=== PATIENT | female | born 1975 | race American Indian/Alaskan Native ===

== ENCOUNTER 2016-08-05 05:13 | Inpatient (IN) | payer OTHER ==
[~2016-08-05 05:13] MED LIST: ATIVAN ONE
[2016-08-05] MEDS ORDERED: ATIVAN IV ONE ×3 (05:15→05:24)
[2016-08-05] MEDS ORDERED: KEPPRA 1,000 MG/NS 0.75% 100ML 1,000 MG/100 ML BAG IV ONE ×2 (05:15→05:25)
[2016-08-05] MEDS ORDERED: ATIVAN ONE ×2 (05:19→15:15)
[2016-08-05] MEDS ORDERED: ZEMURON IV ONE ×3 (05:21→15:14)
--- NOTE | 2016-08-05 05:31 | Emergency Department Report ---
ED CPR HPI - General Chief Complaint: Cardiac Arrest/CPR Stated Complaint: CARDIAC ARREST Time Seen by Provider: 08/05/16 05:21 Source: EMS (verbal report received from EMS. My EMS disclaimer) Limitations: Altered Mental Status - History of Present Illness Initial Comments: This is a 40-year-old female, she is previously unknown to me. She is brought to the hospital by EMS as an out of hospital respiratory/cardiac arrest. Past medical history is not certain, she does have a tracheostomy. As per verbal report from EMS, patient choked on something, place hands around neck, and indicated that she was having trouble breathing. EMS reports that while in the field, patient became very hard to bag through the tracheostomy, lost her pulses , and went into PEA arrest. Not receive epinephrine. EMS placed a left lower extremity intraosseous IV, and a report aggressively suctioning the patient, and obtaining return of spontaneous circulation. EMS does report that the patient was found down at home, for uncertain duration of time, and uncertain mechanism. Upon arrival to the ER, the patient was obtunded, having nonspecific myoclonic jerking movements. She had some spontaneous respirations. Pupils were midpoint and minimally reactive to light bilaterally. Rectal temperature was 98.2, no obvious signs of physical trauma. Patient had coarse rhonchorous breath sounds with [id number] ventilation. Cervical collar was placed immediately using C-spine precautions during her primary survey. MD Complaint: found unresponsive, stopped breathing, unknown Place: home Bystander CPR Performed: No AED Applied by Bystander/Package Delivery Driver: No Shock Advised: No Initial Findings in the Field: unresponsive, lethargic, agonal, PEA (lost pulses in the field) ROSC in the Field: Yes Treatments Prior to Arrival: chest compressions - Related Data Home Medications Medication Instructions Recorded Confirmed Last Taken Topiramate [Topamax] 100 mg PO BID 08/05/16 08/05/16 Unknown levETIRAcetam [Keppra TAB] mg PO BID 08/05/16 Unknown Previous Rx's Medication Instructions Recorded Last Taken Type Aspirin [Aspirin TAB] 325 mg PO QDAY tablet 08/07/16 Unknown Rx AtorvaSTATin [Lipitor] 40 mg PO QHS tablet 08/07/16 Unknown Rx Enoxaparin [Lovenox] 40 mg SUB-Q QDAY syringe 08/07/16 Unknown Rx Lipase/Protease/Amylase [Pancreaze 1 each FEEDTUBE PRN PRN 30 Days 08/07/16 Unknown Rx 10,500 Unit] Ondansetron [Zofran INJ] 4 mg IV Q8H PRN 30 Days 08/07/16 Unknown Rx Pantoprazole [Protonix INJ] 40 mg IV QDAY vial 08/07/16 Unknown Rx Sodium Chloride 0.9% 1000 ml [NaCl 100 ml IV DIRECT #2 bag 08/07/16 Unknown Rx 0.9 1000 ML] Topiramate [Topamax] 100 mg PO Q12HR tablet 08/07/16 Unknown Rx Allergies Allergy/AdvReac Type Severity Reaction Status Date / Time No Known Allergies Allergy Verified 08/05/16 05:30 ED Review of Systems ROS: Stated complaint: CARDIAC ARREST Other details as noted in HPI ED Past Medical Hx - Medications Home Medications: Home Medications Medication Instructions Recorded Confirmed Last Taken Type Topiramate [Topamax] 100 mg PO BID 08/05/16 08/05/16 Unknown History levETIRAcetam [Keppra TAB] mg PO BID 08/05/16 Unknown History Aspirin [Aspirin TAB] 325 mg PO QDAY tablet 08/07/16 Unknown Rx AtorvaSTATin [Lipitor] 40 mg PO QHS tablet 08/07/16 Unknown Rx Enoxaparin [Lovenox] 40 mg SUB-Q QDAY syringe 08/07/16 Unknown Rx Lipase/Protease/Amylase [Pancreaze 1 each FEEDTUBE PRN PRN 30 Days 08/07/16 Unknown Rx 10,500 Unit] Ondansetron [Zofran INJ] 4 mg IV Q8H PRN 30 Days 08/07/16 Unknown Rx Pantoprazole [Protonix INJ] 40 mg IV QDAY vial 08/07/16 Unknown Rx Sodium Chloride 0.9% 1000 ml [NaCl 100 ml IV DIRECT #2 bag 08/07/16 Unknown Rx 0.9 1000 ML] Topiramate [Topamax] 100 mg PO Q12HR tablet 08/07/16 Unknown Rx ED Physical Exam - General Limitations: Altered Mental Status General appearance: obtunded, other (patient has a GCS of 3) - Eye Eye exam: Present: other (pupils are midpoint, and have minimal reaction to light bilaterally.) - ENT ENT exam: Present: other (tracheostomy is noted, no redness, pus or streaking) - Neck Neck exam: Present: normal inspection - Respiratory Respiratory exam: Present: rhonchi - Cardiovascular Cardiovascular Exam: Present: normal rhythm, tachycardia - GI/Abdominal GI/Abdominal exam: Present: soft, normal bowel sounds. Absent: distended, tenderness, guarding, rebound, rigid, pulsatile mass - Extremities Exam Extremities exam: Present: normal inspection, normal capillary refill, other ( left lower extremity intraosseous IV is noted). Absent: calf tenderness - Back Exam Back exam: Present: normal inspection. Absent: tenderness - Neurological Exam Neurological exam: Present: altered - Psychiatric Psychiatric exam: Present: other (GCS of 3, nonverbal) - Skin Skin exam: Present: dry ED Course Vital Signs 08/05/16 08/05/16 08/05/16 05:22 06:00 06:14 Temperature 98.4 F Pulse Rate 112 H 112 H 110 H Respiratory 24 20 Rate Blood Pressure 107/67 102/69 Blood Pressure 102/55 [Left] O2 Sat by Pulse 100 100 100 Oximetry 08/05/16 08/05/16 08/05/16 06:30 07:52 09:01 Temperature Pulse Rate 106 H 82 84 Respiratory 18 17 Rate Blood Pressure 96/61 123/76 Blood Pressure 94/61 [Left] O2 Sat by Pulse 98 100 100 Oximetry 08/05/16 08/05/16 08/05/16 09:03 09:05 09:07 Temperature Pulse Rate 84 86 85 Respiratory 21 22 12 Rate Blood Pressure 123/76 123/76 123/76 Blood Pressure [Left] O2 Sat by Pulse 100 100 100 Oximetry 08/05/16 08/05/16 08/05/16 09:09 09:11 09:13 Temperature Pulse Rate 80 81 82 Respiratory 27 H 16 28 H Rate Blood Pressure 121/67 121/67 121/67 Blood Pressure [Left] O2 Sat by Pulse 100 100 100 Oximetry 08/05/16 08/05/16 08/05/16 09:15 09:17 09:19 Temperature Pulse Rate 82 85 86 Respiratory 25 H 24 25 H Rate Blood Pressure 127/77 127/77 127/77 Blood Pressure [Left] O2 Sat by Pulse 100 100 100 Oximetry 08/05/16 08/05/16 08/05/16 09:21 09:23 09:25 Temperature Pulse Rate 84 84 80 Respiratory 28 H 21 24 Rate Blood Pressure 127/77 127/77 127/77 Blood Pressure [Left] O2 Sat by Pulse 100 100 100 Oximetry 08/05/16 08/05/16 08/05/16 09:27 09:29 09:30 Temperature Pulse Rate 87 88 83 Respiratory 27 H 13 11 L Rate Blood Pressure 127/77 127/77 129/79 Blood Pressure [Left] O2 Sat by Pulse 100 100 100 Oximetry 08/05/16 08/05/16 08/05/16 09:31 09:33 09:35 Temperature Pulse Rate 92 H 83 88 Respiratory 10 L 11 L 15 Rate Blood Pressure 129/79 129/79 129/79 Blood Pressure [Left] O2 Sat by Pulse 100 100 100 Oximetry 08/05/16 08/05/16 08/05/16 09:37 09:39 09:41 Temperature Pulse Rate 82 90 89 Respiratory 12 10 L 12 Rate Blood Pressure 129/79 129/79 129/79 Blood Pressure [Left] O2 Sat by Pulse 100 100 100 Oximetry 08/05/16 08/05/16 08/05/16 09:43 09:45 09:47 Temperature Pulse Rate 90 92 H 93 H Respiratory 10 L 12 13 Rate Blood Pressure 129/79 129/79 132/78 Blood Pressure [Left] O2 Sat by Pulse 100 100 100 Oximetry 08/05/16 08/05/16 08/05/16 09:49 09:51 09:53 Temperature Pulse Rate 92 H 95 H 92 H Respiratory 11 L 11 L 11 L Rate Blood Pressure 132/78 132/78 132/78 Blood Pressure [Left] O2 Sat by Pulse 100 100 100 Oximetry 08/05/16 08/05/16 08/05/16 09:55 09:57 09:59 Temperature Pulse Rate 95 H 94 H 92 H Respiratory 11 L 10 L 10 L Rate Blood Pressure 132/78 132/78 132/78 Blood Pressure [Left] O2 Sat by Pulse 100 100 100 Oximetry 08/05/16 08/05/16 08/05/16 10:00 10:01 10:03 Temperature Pulse Rate 98 H 88 96 H Respiratory 12 13 13 Rate Blood Pressure 130/81 130/81 130/81 Blood Pressure [Left] O2 Sat by Pulse 100 100 100 Oximetry 08/05/16 08/05/16 08/05/16 10:05 10:07 10:09 Temperature Pulse Rate 92 H 95 H 95 H Respiratory 12 13 9 L Rate Blood Pressure 130/81 130/81 130/81 Blood Pressure [Left] O2 Sat by Pulse 100 100 100 Oximetry 08/05/16 08/05/16 08/05/16 10:11 10:13 10:15 Temperature Pulse Rate 98 H 92 H 95 H Respiratory 9 L 13 9 L Rate Blood Pressure 130/81 130/81 130/81 Blood Pressure [Left] O2 Sat by Pulse 100 100 100 Oximetry 08/05/16 08/05/16 08/05/16 10:17 10:19 10:21 Temperature Pulse Rate 93 H 97 H 97 H Respiratory 9 L 9 L 11 L Rate Blood Pressure 128/77 128/77 128/77 Blood Pressure [Left] O2 Sat by Pulse 100 100 100 Oximetry 08/05/16 08/05/16 08/05/16 10:23 10:25 10:27 Temperature Pulse Rate 108 H 95 H 96 H Respiratory 11 L 11 L 12 Rate Blood Pressure 128/77 128/77 128/77 Blood Pressure [Left] O2 Sat by Pulse 100 100 100 Oximetry 08/05/16 08/05/16 08/05/16 10:29 10:30 10:31 Temperature Pulse Rate 98 H 99 H 96 H Respiratory 28 H 10 L 10 L Rate Blood Pressure 128/77 132/76 132/76 Blood Pressure [Left] O2 Sat by Pulse 97 97 Oximetry 08/05/16 08/05/16 10:33 10:41 Temperature Pulse Rate 95 H 96 H Respiratory 11 L 11 L Rate Blood Pressure 132/76 132/76 Blood Pressure [Left] O2 Sat by Pulse 86 85 Oximetry - Reevaluation(s) Reevaluation #1: 08/05/16 05:37 differential diagnosis: Intracranial injury, cervical spine injury, hypoxemic arrest, hypercarbic arrest, coronary artery disease, aspiration Assessment and plan: 40-year-old female without hospital cardiac arrest, clinically sounds currently respiratory in nature. She is altered upon arrival , with nonspecific myoclonic jerking. CT scan of the head and cervical spine are pending. Laboratory studies pending. EKG, urinalysis pending. Reevaluation #2: 08/05/16 06:36 care is transferred to Dr Darnell, who will follow up on ct of head and c spine. assuming no pathology that would would require transfer, plan is to admit patient to this hospital for respiratory and cardiac arrest this hospital does not have a hypothermia protocol - EJ/Peripheral Line Leg L Time Out Performed: Yes Indications: multiple IV sites needed Size: 18 Dressing Placed: Tegaderm Patient Tolerated Procedure: well Other Time Out Performed: Yes Indications: multiple IV sites needed Skin Cleansed in Sterile Fashion: Yes Size: 20 Dressing Placed: Tegaderm Patient Tolerated Procedure: well Additional Comments: left chest wall ED Medical Decision Making - Lab Data Result diagrams: 08/06/16 04:20 08/07/16 05:15 Vital Signs 08/05/16 05:22 Temperature 98.4 F Pulse Rate 112 H Respiratory 24 Rate Blood Pressure 107/67 O2 Sat by Pulse 100 Oximetry - EKG Data When compared to previous EKG there are: previous EKG unavailable 08/05/16 05:47 Sinus tachycardia, 112 bpm, atrial enlargement, not morphologically consistent with STEMI. Normal axis. Prolonged QTC at 483 ms. - Radiology Data Radiology results: image reviewed interpreted by me: X-ray of the chest demonstrates no acute disease. Tracheostomy is noted in place. No obvious infiltrates. Critical Care Time: Yes Critical care time in (mins) excluding proc time.: 45 Critical care attestation.: If time is entered above; I have spent that time in minutes in the direct care of this critically ill patient, excluding procedure time. Critical Care Time: Critical care time includes multiple bedside evaluations, interpretation of laboratory studies, radiology studies, time spent managing a critically ill patient with respiratory failure. ED Disposition Clinical Impression: Acute hypoxemic respiratory failure, Discharge planning issues Disposition: OP ADMITTED IP TO THIS HOSP Is pt being admited?: Yes Condition: Critical
[2016-08-05 05:39] LABS: Mean Corpuscular HGB Conc 31 % (30-34); Mean Corpuscular Hemoglobin 29 pg (28-32); Mean Corpuscular Volume 94 fl (79-97); Platelet Count 232 K/mm3 (140-440); Red Blood Count 4.19 M/mm3 (3.65-5.03); Red Cell Distribution Width 14.6 % (13.2-15.2)
[2016-08-05 05:53] LABS: Hematocrit 39.2 % (30.3-42.9)
[2016-08-05 06:03] LABS: Albumin 3.9 g/dL (3.9-5); Albumin/Globulin Ratio 1.2 %; BUN/Creatinine Ratio 11.42; Bilirubin,Total 0.5 mg/dL (0.1-1.2); Calcium 8.8 mg/dL (8.4-10.2); Chloride 102.1 mmol/L (98-107); Potassium 4.4 mmol/L (3.6-5.0); Total Protein 7.1 g/dL (6.3-8.2)
[2016-08-05 06:08] LABS: INR 1.22 (0.87-1.13)
[2016-08-05 06:12] LABS: ISTAT Base Excess -12; ISTAT HCO3 18.1; ISTAT PCO2 59.6 (35-45); ISTAT PO2 139 (80-105); ISTAT SO2 98; ISTAT TCO2 20
[2016-08-05] MEDS ORDERED: NACL 0.9% 1000 ML 1,000 ML IV ONE ×2 (06:15)
--- NOTE | 2016-08-05 06:19 | Admit Criteria Form ---
Admission Criteria Documentation: CARDIOLOGY GRG Clinical Indications for Admission to Inpatient Care ( Place 'X' for any and all applicable criteria): Hospital admission is needed for appropriate care of the patient because of ANY ONE of the following (1): [ ] I. Hemodynamic instability as indicated by ALL of the following (1)(2)(3) (4)(5) [ ]a) Vital signs or other findings not as expected for chronic patient condition or baseline [ ]b) Instability indicated by ANY ONE of the following: [ ]i) Hypotension [ ]ii) Symptomatic Tachycardia unresponsive to treatment ( e.g., analgesia, fluids, sedation as indicated) [ ]iii) Inadequate perfusion indicated by ANY ONE of the following: [ ] 1) Lactic acidosis (> 2 mmol/L) [ ] 2) New abnormal capillary refill (> 3 seconds) [ ] 3) Reduced urine output [ ] 4) New altered mental status [ ]iv) Orthostatic vital sign changes unresponsive to treatment (e.g., fluids) [ ]v) IV inotropic or vasopressor medication required to maintain adequate blood pressure or perfusion [ ] II. Severe heart failure as indicated by ANY ONE of the following(17)(18) [ ]a) Respiratory distress [ ]b) Hypotension [ ]c) Anasarca (refractory to outpatient therapy) [ ]d) Cardiac arrhythmias of immediate concern [ ]e) Myocardial ischemia [X ] III. Cardiac arrhythmias or findings of immediate concern indicated by ANY ONE of the following (19)(20): [X ] a) Heart rhythms that are inherently dangerous or unstable indicated by ANY ONE of the following (21)(22)(23): [X ] i) Resuscitated ventricular fibrillation or cardiac arrest [ ] ii) Ventricular escape rhythm [ ] iii) Sustained ventricular tachycardia (30 seconds or more of ventricular rhythm at greater than 100 beats per minute) [ ] iv) Nonsustained ventricular tachycardia and ANY ONE of the following: [ ] 1) Suspected cardiac ischemia as cause or consequence of ventricular tachycardia [ ] 2) In setting of acute myocarditis [ ] b) Unstable cardiac conduction defects indicated by ANY ONE of the following(23)(24)(25) [ ] i) Type II second-degree atrioventricular block [ ]ii) Third-degree atrioventricular block [ ]iii) New-onset left bundle branch block with suspected myocardial ischemia [ ]c) Any heart rhythm and ANY ONE of the following (21)(22)(26)(27) (28) [ ] i) Continuous long-term ECG monitoring needed (e.g., initiation of drug requiring monitoring for more than 24 hours) [ ] ii) Patient has automatic implanted cardioverter defibrillator that is repeatedly firing, malfunctioning, or in need of immediate adjustment of settings beyond the scope of ambulatory or observation care [ ]d) Heart rhythms of concern due to ANY ONE of the following: [ ] i) Hypotension [ ] ii) Respiratory distress [ ] iii) Association with other significant symptoms (e.g., bradycardia with syncope or ongoing dizziness, supraventricular tachycardia with chest pain (14)(15)(17) [ ] IV. Monitoring for cardiac contusion beyond the scope of observation care needed [A](30)(31)(32) [ ] V. Surgical or device complication (e.g., valve replacement complication , pacemaker dysfunction) (35)(41)(44)(45)(46) [ ] . Inpatient palliative care needed. [B](49) Also use Inpatient Palliative Care Criteria [ ] VII. Nonbacterial thrombotic (marantic) endocarditis (36)(43)(47)(48) [ ] VIII. Cardiology condition, symptom, or finding for which emergency and observation care has failed or are not considered appropriate. [ ] IX. Acute valvular disease requiring inpatient as indicated by ANY ONE of the following (41) [ ]a) Acute valvular regurgitation (42) [ ]b) Noninfectious valvulitis (43) [ ]c) Obstructive valve thrombosis [ ]d) Paravalvular leak [ ]e) Other significant valvular disorder remaining after emergency or observation level of care (as appropriate) [ ]X. Pericardial disease requiring inpatient treatment as indicated by ANY ONE of the following (33)(34)(35)(36)(37) [ ]a) Suspected tamponade (38)(39)(40) [ ]b) Hemopericardium [ ]c) Other significant pericardial disorder remaining after emergency or observation level of care (as appropriate) [ ] XI. Cardiac ischemia beyond scope of emergency and observation care. [ ] XII. Hypertension requiring inpatient treatment as indicated by ANY ONE of the following (6)(7)(8) [ ]a) SBP greater than 220 mm Hg or DBP greater than 120 mmHg despite treatment [ ]b) SBP greater than 140 mm Hg or DBP greater than 100 mm Hg with evidence of acute end organ damage as indicated by ANY ONE of the following [ ] i) Altered mental status [ ] ii) Acute renal failure as indicated by new onset of ANY ONE of the following (9)(10)(11)(12)(13) [ ]1) 3-fold rise in serum creatinine from baseline [ ]2) Serum creatinine greater than 4 mg/dL ( 354 micromoles/L) with acute rise greater than 0.5 mg/dL (44.2 micromoles/L) [ ]3) Reduction of more than 75% in estimated glomerular filtration rate from baseline [ ]4) Estimated glomerular filtration rate less than 35 mL/min/1.73m2 (0.59 mL/sec/1.73m2) in child up to 18 years of age [ ]5) Cessation of urine output indicated by ALL of the following [ ]A. Adequate volume status [ ]B. Inadequate urine output as indicated by ANY ONE of the following [ ]a. Urine output less than 0.3 mL/kg/hr for 24 hours [ ]b. Anuria (urine output less than 0.1 mL/kg/hr) for 12 hours [ ] iii) Aortic dissection [ ] iv) Myocardial Ischemia [ ] v) Left ventricular heart failure [ ]vi) Retinal Hemorrhage [ ]vii) Other significant finding [ ]c) Hypertension in child requiring inpatient treatment as indicated by ALL of the following(14)(15)(16) [ ] i) Outpatient treatment not effective, not available, or not appropriate [ ]ii) SBP or DBP greater than 95th percentile for age [ ]iii) Evidence of acute end organ damage as indicated by ANY ONE of the following [ ]1) Altered mental status [ ]2) Acute renal failure as indicated by new onset of ANY ONE of the following(9)(10)(11)(12)(13) [ ]A. 3-fold rise in serum creatinine from baseline [ ]B. Serum creatinine greater than 4 mg/dL (354 micromoles/L) with acute rise greater than 0.5 mg/dL (44.2 micromoles/L) [ ]C. Reduction of more than 75% in estimated glomerular filtration rate from baseline [ ]D. Estimated glomerular filtration rate less than 35 mL/min/1.73m2 (0.59 mL/sec/1.73m2) in child up to 18 years of age [ ]E. Cessation of urine output indicated by ALL of the following [ ]a. Adequate volume status [ ]b. Inadequate urine output as indicated by ANY ONE of the following [ ]i) Urine output less than 0.3 mL/kg/hr for 24 hours [ ]ii) Anuria ( urine output less than 0.1 mL/kg/hr) for 12 hours [ ]3) Severe headache [ ]4) Visual disturbance [ ]5) Retinal hemorrhage [ ]6) Other significant finding [ ]XIII. Complications of transplanted heart indicated by ANY ONE of the following(61): [ ]a) Acute graft rejection requiring inpatient management (eg, intravenous immunosuppression)(62)(63) [ ]b) Acute graft heart failure indicated by ANY ONE of the following(64): [ ]i) Hemodynamic instability [ ]ii) Cardiac arrhythmias of immediate concern [ ]iii) Pulmonary edema that is very severe (eg, mechanical ventilation needed, imminent or likely, need for 100% oxygen to keep oxygen saturation above 90%) [ ]iv) Pulmonary edema that is persistent as indicated by ALL of the following: [ ]1) New need for oxygen therapy to keep oxygen saturation above 90% (or increased FiO2 need from baseline) [ ]2) Has not improved sufficiently with emergency department or observation care IV diuretics or other heart failure treatments[E] [ ]v) Altered mental status that is severe or persistent [ ]vi) Increased creatinine (new on laboratory test) with reduction of more than 50% in estimated glomerular filtration rate from baseline [ ]vii) Progressively (ongoing) rising creatinine (known from past laboratory test) with reduction of more than 25% in estimated glomerular filtration rate from baseline [ ]viii) Acute renal failure [ ]ix) Acute peripheral ischemia (eg, examination shows pulseless, cool, mottled, or cyanotic extremity) [ ]x) Pulmonary artery catheter monitoring needed [ ]xi) Other sign or symptom of heart failure requiring inpatient treatment (ie, too severe or not responsive to outpatient and observation care treatment) [ ]c) Infection requiring inpatient management (eg, Hemodynamic instability, need for intravenous antimicrobial treatment)(66)(67)(68)(69)(70) [ ]d) Cardiac allograft vasculopathy requiring inpatient management ( eg evidence of cardiac ischemia)(71) [ ]e) Other complication of transplanted heart (eg, stroke, severe pulmonary hypertension, severe valvular dysfunction) requiring inpatient management(72) The original [facility] [email or web address] content created by [facility] has been revised. The portions of the content which have been revised are identified through the use of italic text or in bold, and [facility] has neither reviewed nor approved the modified material. All other unmodified content is copyright [facility]. Please see references footnoted in the original [facility] [email or web address] edition 2016 X Admission Criteria Met: Yes
[2016-08-05 07:03] LABS: Basophils % (Manual) 0 % (0.0-1.8); Blastocytes % (Manual) 0 %; Eosinophils % (Manual) 0 % (0.0-4.3)
[2016-08-05 07:04] LABS: Anisocytosis 1+; Diff Status Complete; Hypochromasia Few
--- NOTE | 2016-08-05 07:15 | XRay Report ---
Single view chest: History: Difficulty breathing. Findings: Borderline cardiomegaly. Trachea is midline. Tip of tracheostomy tube in normal position. No consolidation, pneumothorax or pleural effusion. Impression: No acute cardiopulmonary findings.
[2016-08-05 07:23] LABS: Urine Drugs of Abuse Note Disclamer
--- NOTE | 2016-08-05 07:55 | Cat Scan Report ---
CT scan of head without contrast: History: Out of hospital arrest found down. Findings: Ventricles are normal in size and midline in location. No evidence of acute ischemia, hemorrhage or mass. No extra axial fluid collection. Normal brainstem and cerebellum. Visualized sinuses and mastoid air cells normal. No fracture of the calvarium. The Impression: Essentially negative CT scan of head.
--- NOTE | 2016-08-05 07:57 | Cat Scan Report ---
CT scan of cervical spine: History: Out of hospital arrest, found down. Findings: Pulmonary process and lateral mass appears intact. The posterior arch of atlas and the occipital condyles appears normal. Normal height of vertebral bodies. Decrease in height of C4-C5, C5-C6, C6-C7 and C7-T1. Sclerotic articular surfaces with evidence of cervical spondylosis. No fracture. Normal prevertebral soft tissue. Impression: Cervical spondylosis. No evidence of acute fracture.
[2016-08-05 08:02] LABS: Bilirubin,Urine NEG (Negative); Blood,Urine SM (Negative); Ketones,Urine NEG (Negative); Leukocyte Esterase,Urine NEG (Negative); Mucus,Urine FEW /HPF; Nitrite,Urine NEG (Negative); Urobilinogen,Urine < 2.0 mg/dL (<2.0)
[2016-08-05 08:04] LABS: Protein,Urine >500 mg/dL (Negative)
--- NOTE | 2016-08-05 08:15 | Emergency Department Report ---
ED General Adult HPI - General Chief complaint: Dyspnea/Respdistress Stated complaint: CARDIAC ARREST Time Seen by Provider: 08/05/16 05:21 Source: EMS (verbal report received from EMS. My EMS disclaimer) Mode of arrival: Stretcher Limitations: Altered Mental Status - History of Present Illness Severity scale (0 -10): 0 - Related Data Allergies Allergy/AdvReac Type Severity Reaction Status Date / Time No Known Allergies Allergy Verified 08/05/16 05:30 ED Review of Systems ROS: Stated complaint: CARDIAC ARREST Other details as noted in HPI ED Past Medical Hx - Past Medical History Previous Medical History?: Yes Hx Diabetes: Yes - Surgical History Past Surgical History?: Yes Additional Surgical History: TRACHEOSTOMY - Social History Smoking Status: Unknown if ever smoked ED Physical Exam - General Limitations: Altered Mental Status General appearance: obtunded, other (patient has a GCS of 3) ED Course Vital Signs 08/05/16 08/05/16 08/05/16 05:22 06:00 06:14 Temperature 98.4 F Pulse Rate 112 H 112 H 110 H Respiratory 24 20 Rate Blood Pressure 107/67 102/69 Blood Pressure 102/55 [Left] O2 Sat by Pulse 100 100 100 Oximetry 08/05/16 08/05/16 06:30 07:52 Temperature Pulse Rate 106 H 82 Respiratory 18 Rate Blood Pressure 96/61 Blood Pressure 94/61 [Left] O2 Sat by Pulse 98 100 Oximetry ED Medical Decision Making - Lab Data Result diagrams: 08/05/16 Unknown 08/05/16 Unknown - Medical Decision Making Patient signed out to me by Dr. Monk , he spoke with the admitting doctor already and we are pending the results of CT head and neck which are normal, so I called back the hospitlaist and let them know about the results and they will admit. Critical Care Time: Yes Critical care time in (mins) excluding proc time.: 35 Critical care attestation.: If time is entered above; I have spent that time in minutes in the direct care of this critically ill patient, excluding procedure time. ED Disposition Condition: Stable Referrals: PRIMARY CARE, [Primary Care Provider] - 3-5 Days
[2016-08-05] MEDS ORDERED: ZOFRAN IV PRN (09:34)
[2016-08-05] MEDS ORDERED: DULCOLAX PR PRN ×2 (09:34→09:46)
[2016-08-05] MEDS ORDERED: MILK OF MAGNESIA PO PRN ×2 (09:34→09:46)
[2016-08-05] MEDS ORDERED: TYLENOL PO PRN (09:34)
[2016-08-05] MEDS ORDERED: ALUM-MAG HYDROX-SIMETH 200-200-20MG/5ML PO PRN (09:46)
[2016-08-05] MEDS ORDERED: VASELINE LIP THERAPY TP PRN (10:00)
[2016-08-05] MEDS ORDERED: ARTIFICIAL TEARS OPHTH OINT OU PRN (10:00)
[2016-08-05] MEDS: VERSED/NS 100MG/100ML 100 MG/100 ML BAG IV SCH ×2 (10:20→19:58)
--- NOTE | 2016-08-05 10:49 | History and Physical Report ---
History of Present Illness Chief complaint: altered mental status History of present illness: Patient is nonverbal, so therefore history was obtained from EMS documentation, ER documentation and nursing staff This is a 40-year-old woman with past medical history of seizure disorder on Keppra and Topamax, who is status post trach and lives at home who was found by family having trouble breathing, apparently was mentioned to the ER staff that family members saw her struggling to breathe, after which she collapsed. EMS was called upon arriving they found her unresponsive in the bathroom she was cold to touch and pale she had agonal respiration and she was pulseless on pupils were nonreactive, and at the time had to touch assessment did not show any obvious trauma, she received CPR which included chest compressions she was found to have PE at a rate of 50, hypertensive bag revealed resistance, after which she was aggressively suctioned. After chest compressions and bagging patient had a spontaneous return of circulation, IO was placed and she received IV fluids. Upon arriving in the ER her mental status did not improve, she continued to have myoclonic jerking, she also lacks majority of brainstem function does not have a corneal reflex. Past History Past Medical History: seizures, other (sp tracheostomy) Social history: lives with family Family history: no significant family history Medications and Allergies Allergies Allergy/AdvReac Type Severity Reaction Status Date / Time No Known Allergies Allergy Verified 08/05/16 05:30 Home Medications Medication Instructions Recorded Confirmed Last Taken Type Topiramate [Topamax] 100 mg PO BID 08/05/16 08/05/16 Unknown History levETIRAcetam [Keppra TAB] mg PO BID 08/05/16 Unknown History Active Meds: Active Medications Acetaminophen (Tylenol) 650 mg PO Q4H PRN PRN Reason: Pain MILD(1-3)/Fever >100.5/CHRISTINE Al Hydrox/Mg Hydrox/Simethicone (Alum-Mag Hydrox-Simeth [phone]/5ml) 30 ml PO Q4H PRN PRN Reason: Indigestion Bisacodyl (Dulcolax) 10 mg [place] QDAY PRN PRN Reason: Constipation unrelieved by MOM Bisacodyl (Dulcolax) 10 mg KS QDAY PRN PRN Reason: constipation unrelieved by MOM Enoxaparin Sodium (Lovenox) 40 mg SUB-Q QDAY LEDY Hydrophilic Ointment (Vaseline Lip Therapy) 1 applic TP Q2HR PRN PRN Reason: Dry Lips Levetiracetam 1,000 mg/ (Dextrose) 110 mls @ 400 mls/hr IV Q12HR LEDY Midazolam HCl (Versed/Ns 100mg/100ml) 100 mls @ 2 mls/hr IV TITR LEDY; 2 MG/HR PRN Reason: Protocol Magnesium Hydroxide (Milk Of Magnesia) 30 ml PO Q4H PRN PRN Reason: Constipation Magnesium Hydroxide (Milk Of Magnesia) 30 ml PO Q4H PRN PRN Reason: Constipation Multi-Ingred Cream/Lotion/Oil/Oint (Artificial Tears Ophth Oint) 1 applic OU Q4HR PRN PRN Reason: Dry Eye(s) Ondansetron HCl (Zofran) 4 mg IV Q8H PRN PRN Reason: N/V unrelieved by Reglan Review of Systems ROS unobtainable: due to mental status Exam - Physical Exam Narrative exam: General: obtunded, having intermittent full body myoclonal jerks HEENT: MMM, EOMI cardiac: S1-S2 heard lungs: clear to auscultation, abdomen: soft, nontender, nondistended bowel sounds positive extremities: no edema clubbing or cyanosis Skin: no rash or lesion Neuro: no corneal reflex, non responsive to verbal, tactile or painful stimuli, absense of brain stem reflexes, toes are upgoing, (not sedated at time of my exam, Pupils were midpoint and minimally reactive to light bilaterally), - Constitutional Vitals: Temp Pulse Resp BP Pulse Ox 98.4 F 82 18 96/61 100 08/05/16 05:22 08/05/16 07:52 08/05/16 06:30 08/05/16 07:52 08/05/16 07:52 Results - Labs CBC & Chem 7: 08/06/16 04:20 08/06/16 04:20 Labs: Laboratory Last Values WBC 14.0 K/mm3 (4.5-11.0) H 08/05/16 Unknown RBC 4.19 M/mm3 (3.65-5.03) 08/05/16 Unknown Hgb 12.0 gm/dl (10.1-14.3) 08/05/16 Unknown Hct 39.2 % (30.3-42.9) 08/05/16 Unknown MCV 94 fl (79-97) 08/05/16 Unknown MCH 29 pg (28-32) 08/05/16 Unknown MCHC 31 % (30-34) 08/05/16 Unknown RDW 14.6 % (13.2-15.2) 08/05/16 Unknown Plt Count 232 K/mm3 (140-440) 08/05/16 Unknown Add Manual Diff Complete 08/05/16 Unknown Total Counted 100 08/05/16 Unknown Seg Neuts % (Manual) 57.0 % (40.0-70.0) 08/05/16 Unknown Band Neutrophils % 6.0 % 08/05/16 Unknown Lymphocytes % (Manual) 31.0 % (13.4-35.0) 08/05/16 Unknown Reactive Lymphs % (Man) 0 % 08/05/16 Unknown Monocytes % (Manual) 5.0 % (0.0-7.3) 08/05/16 Unknown Eosinophils % (Manual) 0 % (0.0-4.3) 08/05/16 Unknown Basophils % (Manual) 0 % (0.0-1.8) 08/05/16 Unknown Metamyelocytes % 1.0 % 08/05/16 Unknown Myelocytes % 0 % 08/05/16 Unknown Promyelocytes % 0 % 08/05/16 Unknown Blast Cells % 0 % 08/05/16 Unknown Nucleated RBC % Not Reportable 08/05/16 Unknown Seg Neutrophils # Man 8.0 K/mm3 (1.8-7.7) H 08/05/16 Unknown Band Neutrophils # 0.8 K/mm3 08/05/16 Unknown Lymphocytes # (Manual) 4.3 K/mm3 (1.2-5.4) 08/05/16 Unknown Abs React Lymphs (Man) 0.0 K/mm3 08/05/16 Unknown Monocytes # (Manual) 0.7 K/mm3 (0.0-0.8) 08/05/16 Unknown Eosinophils # (Manual) 0.0 K/mm3 (0.0-0.4) 08/05/16 Unknown Basophils # (Manual) 0.0 K/mm3 (0.0-0.1) 08/05/16 Unknown Metamyelocytes # 0.1 K/mm3 08/05/16 Unknown Myelocytes # 0.0 K/mm3 08/05/16 Unknown Promyelocytes # 0.0 K/mm3 08/05/16 Unknown Blast Cells # 0.0 K/mm3 08/05/16 Unknown WBC Morphology Not Reportable 08/05/16 Unknown Hypersegmented Neuts Not Reportable 08/05/16 Unknown Hyposegmented Neuts Not Reportable 08/05/16 Unknown Hypogranular Neuts Not Reportable 08/05/16 Unknown Smudge Cells Not Reportable 08/05/16 Unknown Toxic Granulation Not Reportable 08/05/16 Unknown Toxic Vacuolation Not Reportable 08/05/16 Unknown Dohle Bodies Not Reportable 08/05/16 Unknown Pelger-Huet Anomaly Not Reportable 08/05/16 Unknown Parvin Rods Not Reportable 08/05/16 Unknown Platelet Estimate Appears normal 08/05/16 Unknown Clumped Platelets Not Reportable 08/05/16 Unknown Plt Clumps, EDTA Not Reportable 08/05/16 Unknown Large Platelets Not Reportable 08/05/16 Unknown Giant Platelets Not Reportable 08/05/16 Unknown Platelet Satelliting Not Reportable 08/05/16 Unknown Plt Morphology Comment Not Reportable 08/05/16 Unknown RBC Morphology Not Reportable 08/05/16 Unknown Dimorphic RBCs Not Reportable 08/05/16 Unknown Polychromasia Not Reportable 08/05/16 Unknown Hypochromasia Few 08/05/16 Unknown Poikilocytosis Not Reportable 08/05/16 Unknown Anisocytosis 1+ 08/05/16 Unknown Microcytosis Not Reportable 08/05/16 Unknown Macrocytosis Not Reportable 08/05/16 Unknown Spherocytes Not Reportable 08/05/16 Unknown Pappenheimer Bodies Not Reportable 08/05/16 Unknown Sickle Cells Not Reportable 08/05/16 Unknown Target Cells Not Reportable 08/05/16 Unknown Tear Drop Cells Not Reportable 08/05/16 Unknown Ovalocytes Not Reportable 08/05/16 Unknown Helmet Cells Not Reportable 08/05/16 Unknown Hdz-[place] Bodies Not Reportable 08/05/16 Unknown [place] Rings Not Reportable 08/05/16 Unknown Cheryl Cells Not Reportable 08/05/16 Unknown Bite Cells Not Reportable 08/05/16 Unknown Crenated Cell Not Reportable 08/05/16 Unknown Elliptocytes Not Reportable 08/05/16 Unknown Acanthocytes (Spur) Not Reportable 08/05/16 Unknown Rouleaux Not Reportable 08/05/16 Unknown Hemoglobin C Crystals Not Reportable 08/05/16 Unknown Schistocytes Not Reportable 08/05/16 Unknown Malaria parasites Not Reportable 08/05/16 Unknown Len Bodies Not Reportable 08/05/16 Unknown Hem Pathologist Commnt No 08/05/16 Unknown PT 15.3 Sec. (12.2-14.9) H 08/05/16 Unknown INR 1.22 (0.87-1.13) H 08/05/16 Unknown POC ABG pH 7.090 (7.35-7.45) L 08/05/16 06:03 POC ABG pCO2 59.6 (35-45) H 08/05/16 06:03 POC ABG pO2 139 (80-105) H 08/05/16 06:03 POC ABG HCO3 18.1 08/05/16 06:03 POC ABG Total CO2 20 08/05/16 06:03 POC ABG O2 Sat 98 08/05/16 06:03 POC ABG Base Excess -12 08/05/16 06:03 FiO2 50 % 08/05/16 06:03 Sodium 138 mmol/L (137-145) 08/05/16 Unknown Potassium 4.4 mmol/L (3.6-5.0) 08/05/16 Unknown Chloride 102.1 mmol/L (98-107) 08/05/16 Unknown Carbon Dioxide 16 mmol/L (22-30) L 08/05/16 Unknown Anion Gap 24 mmol/L 08/05/16 Unknown BUN 16 mg/dL (7-17) 08/05/16 Unknown Creatinine 1.4 mg/dL (0.7-1.2) H 08/05/16 Unknown Estimated GFR 41 ml/min 08/05/16 Unknown BUN/Creatinine Ratio 11.42 % 08/05/16 Unknown Glucose 231 mg/dL (65-100) H 08/05/16 Unknown Lactic Acid 4.6 mmol/L (0.7-2.0) H* 08/05/16 05:38 Calcium 8.8 mg/dL (8.4-10.2) 08/05/16 Unknown Total Bilirubin 0.5 mg/dL (0.1-1.2) 08/05/16 Unknown AST 176 units/L (5-40) H 08/05/16 Unknown ALT 112 units/L (7-56) H 08/05/16 Unknown Alkaline Phosphatase 83 units/L (35-129) 08/05/16 Unknown Troponin T < 0.010 ng/mL (0.00-0.029) 08/05/16 Unknown Total Protein 7.1 g/dL (6.3-8.2) 08/05/16 Unknown Albumin 3.9 g/dL (3.9-5) 08/05/16 Unknown Albumin/Globulin Ratio 1.2 % 08/05/16 Unknown Urine Color Yellow (Yellow) 08/05/16 07:00 Urine Turbidity Cloudy (Clear) 08/05/16 07:00 Urine pH 6.0 (5.0-7.0) 08/05/16 07:00 Ur Specific George 1.013 (1.003-1.030) 08/05/16 07:00 Urine Protein >500 mg/dL (Negative) 08/05/16 07:00 Urine Glucose (UA) 150 mg/dL (Negative) 08/05/16 07:00 Urine Ketones Neg mg/dL (Negative) 08/05/16 07:00 Urine Blood Sm (Negative) 08/05/16 07:00 Urine Nitrite Neg (Negative) 08/05/16 07:00 Urine Bilirubin Neg (Negative) 08/05/16 07:00 Urine Urobilinogen < 2.0 mg/dL (<2.0) 08/05/16 07:00 Ur Leukocyte Esterase Neg (Negative) 08/05/16 07:00 Urine WBC (Auto) 15.0 /HPF (0.0-6.0) H 08/05/16 07:00 Urine RBC (Auto) 11.0 /HPF (0.0-6.0) 08/05/16 07:00 U Epithel Cells (Auto) 4.0 /HPF (0-13.0) 08/05/16 07:00 Amorphous Crystals Few 08/05/16 07:00 Urine Mucus Few /HPF 08/05/16 07:00 Urine HCG, Qual Negative (Negative) 08/05/16 07:00 Urine Opiates Screen Presumptive negative 08/05/16 07:00 Urine Methadone Screen Presumptive negative 08/05/16 07:00 Ur Barbiturates Screen Presumptive negative 08/05/16 07:00 Ur Phencyclidine Scrn Presumptive negative 08/05/16 07:00 Ur Amphetamines Screen Presumptive negative 08/05/16 07:00 U Benzodiazepines Scrn Presumptive negative 08/05/16 07:00 Urine Cocaine Screen Presumptive negative 08/05/16 07:00 U Marijuana (THC) Screen Presumptive negative 08/05/16 07:00 Assessment and Plan Assessment and plan: This is a 40-year-old woman who is status post trach and lives at home who was found by family having trouble breathing, apparently was mentioned to the ER staff that family members saw her choking on something, after which she collapsed. EMS was called upon arriving they found her unresponsive in the bathroom she was cold to touch and pale she had agonal respiration and she was pulseless on pupils were nonreactive, and at the time had to touch assessment did not show any obvious trauma, she received CPR which included chest compressions she was found to have PE at a rate of 50, hypertensive bag revealed resistance, after which she was aggressively suctioned. After chest compressions and bagging patient had a spontaneous return of circulation, IO was placed and she received IV fluids. Upon arriving in the ER her mental status did not improve, she continued to have myoclonic jerking, she also lacks majority of brainstem function does not have a corneal reflex 1. Suspected anoxic brain injury CT head unremarkable, C-spine imaging does not reveal any trauma. Will obtain EEG and MRI brain, neurology consulted, also need to speak to the family about the goals of care. 2. Status epilepticus Currently having myoclonic jerks, concern would anoxic related seizures at that time. We started her on Keppra, patient being put on Versed drip, will obtain EEG and neurology consult 3. Mixed acidosis, respiratory acidosis plus lactic acidosis This was most likely due to the period of anoxia and respiratory failure, continue ventilator, was treated with bicarbonate drip 4. Acute hypercapnic respiratory failure Continue ventilator 5. UTI meets sepsis criteria Obtain urine cultures and start empiric antibiotics 6. Acute kidney injury due to vasomotor nephropathy Treatment with IV fluids patient is critically ill with very poor prognosis, Critical Care time: 32 minutes Plan of care discussed with patient/family: Yes
[2016-08-05] MEDS ORDERED: SODIUM BICARBONATE 150 MEQ in D5W 1,000 ML IV ONE (11:01)
--- NOTE | 2016-08-05 11:24 | Consultation ---
History of Present Illness Consult date: 08/05/16 Requesting physician: ELLIS AREVALO Reason for consult: other (Acute respiratory Failure on MVS; S/P Cardio- pulmonary Arrest) History of present illness: PULMONARY/CCM CONSULT NOTE (Full dictation # [id number]) Please see dictated notes for full details Past History Past Medical History: seizures, other (sp tracheostomy) Social history: lives with family Family history: no significant family history Medications and Allergies Allergies Allergy/AdvReac Type Severity Reaction Status Date / Time No Known Allergies Allergy Verified 08/05/16 05:30 Home Medications Medication Instructions Recorded Confirmed Last Taken Type Topiramate [Topamax] 100 mg PO BID 08/05/16 08/05/16 Unknown History levETIRAcetam [Keppra TAB] mg PO BID 08/05/16 Unknown History Active Meds: Active Medications Acetaminophen (Tylenol) 650 mg PO Q4H PRN PRN Reason: Pain MILD(1-3)/Fever >100.5/CHRISTINE Al Hydrox/Mg Hydrox/Simethicone (Alum-Mag Hydrox-Simeth [phone]/5ml) 30 ml PO Q4H PRN PRN Reason: Indigestion Bisacodyl (Dulcolax) 10 mg [place] QDAY PRN PRN Reason: constipation unrelieved by MOM Enoxaparin Sodium (Lovenox) 40 mg SUB-Q QDAY LEDY Famotidine (Pepcid) 20 mg IV BID LEDY Hydrophilic Ointment (Vaseline Lip Therapy) 1 applic TP Q2HR PRN PRN Reason: Dry Lips Levetiracetam 1,000 mg/ (Dextrose) 110 mls @ 400 mls/hr IV Q12HR LEDY Midazolam HCl (Versed/Ns 100mg/100ml) 100 mg in 100 mls @ 2 mls/hr IV TITR LEDY ; 2 MG/HR PRN Reason: Protocol Last Titration: 08/05/16 10:39 Dose: 4 mg/hr, 4 mls/hr Ceftriaxone Sodium (Rocephin/Ns 1 Gm/50 Ml) 1 gm in 50 mls @ 100 mls/hr IV Q24HR LEDY PRN Reason: Protocol Sodium Bicarbonate 150 meq/ (Dextrose) 1,150 mls @ 100 mls/hr IV DIRECT ONE Stop: 08/05/16 22:30 Magnesium Hydroxide (Milk Of Magnesia) 30 ml PO Q4H PRN PRN Reason: Constipation Magnesium Hydroxide (Milk Of Magnesia) 30 ml PO Q4H PRN PRN Reason: Constipation Multi-Ingred Cream/Lotion/Oil/Oint (Artificial Tears Ophth Oint) 1 applic OU Q4HR PRN PRN Reason: Dry Eye(s) Ondansetron HCl (Zofran) 4 mg IV Q8H PRN PRN Reason: N/V unrelieved by Reglan Physical Examination Vital signs: Vital Signs Temp Pulse Resp BP Pulse Ox 98.4 F 112 H 24 107/67 100 08/05/16 05:22 08/05/16 05:22 08/05/16 05:22 08/05/16 05:22 08/05/16 05:22 Results - Laboratory Findings CBC and BMP: 08/05/16 Unknown 08/05/16 Unknown ABG POC ABG pH 7.090 (7.35-7.45) L 08/05/16 06:03 POC ABG pCO2 59.6 (35-45) H 08/05/16 06:03 POC ABG pO2 139 (80-105) H 08/05/16 06:03 POC ABG HCO3 18.1 08/05/16 06:03 POC ABG Total CO2 20 08/05/16 06:03 POC ABG O2 Sat 98 08/05/16 06:03 PT/INR, D-dimer PT 15.3 Sec. (12.2-14.9) H 08/05/16 Unknown INR 1.22 (0.87-1.13) H 08/05/16 Unknown Abnormal lab findings: Abnormal Labs 08/05/16 08/05/16 08/05/16 Unknown Unknown Unknown WBC 14.0 H Seg Neutrophils # Man 8.0 H PT 15.3 H INR 1.22 H Carbon Dioxide 16 L Creatinine 1.4 H Glucose 231 H AST 176 H ALT 112 H
[2016-08-05] MEDS: KEPPRA 1,000 MG in D5W 100 ML IV SCH ×2 (11:26→22:13)
--- NOTE | 2016-08-05 11:53 | Consultation ---
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 details of Sz s/p Trach reportedly on 3 early AM had suspected choking episode followed by SOB and LOC w/ unresponsiveness. She was found to have PEA arrest and received OOH ACLS. She was then in ED found to have jerking movements. They last 1-2 sec and recurrently occur w/ stimulation. There are no relieving factors. Severity of event limits consciosuness. She is now on Versed gtt. Past History Past Medical History: seizures, other (sp tracheostomy) Social history: single, lives with family Family history: no significant family history Medications and Allergies Allergies Allergy/AdvReac Type Severity Reaction Status Date / Time No Known Allergies Allergy Verified 08/05/16 05:30 Home Medications Medication Instructions Recorded Confirmed Last Taken Type Topiramate [Topamax] 100 mg PO BID 08/05/16 08/05/16 Unknown History levETIRAcetam [Keppra TAB] mg PO BID 08/05/16 Unknown History Active Meds: Active Medications Acetaminophen (Tylenol) 650 mg PO Q4H PRN PRN Reason: Pain MILD(1-3)/Fever >100.5/CHRISTINE Al Hydrox/Mg Hydrox/Simethicone (Alum-Mag Hydrox-Simeth [phone]/5ml) 30 ml PO Q4H PRN PRN Reason: Indigestion Bisacodyl (Dulcolax) 10 mg [place] QDAY PRN PRN Reason: constipation unrelieved by MOM Enoxaparin Sodium (Lovenox) 40 mg SUB-Q QDAY LEDY Famotidine (Pepcid) 20 mg IV BID LEDY Hydrophilic Ointment (Vaseline Lip Therapy) 1 applic TP Q2HR PRN PRN Reason: Dry Lips Levetiracetam 1,000 mg/ (Dextrose) 110 mls @ 400 mls/hr IV Q12HR LEDY Last Admin: 08/05/16 11:26 Dose: 400 mls/hr Midazolam HCl (Versed/Ns 100mg/100ml) 100 mg in 100 mls @ 2 mls/hr IV TITR LEDY ; 2 MG/HR PRN Reason: Protocol Last Titration: 08/05/16 11:27 Dose: 6 mg/hr, 6 mls/hr Ceftriaxone Sodium (Rocephin/Ns 1 Gm/50 Ml) 1 gm in 50 mls @ 100 mls/hr IV Q24HR LEDY PRN Reason: Protocol Sodium Bicarbonate 150 meq/ (Dextrose) 1,150 mls @ 100 mls/hr IV DIRECT ONE Stop: 08/05/16 22:30 Magnesium Hydroxide (Milk Of Magnesia) 30 ml PO Q4H PRN PRN Reason: Constipation Magnesium Hydroxide (Milk Of Magnesia) 30 ml PO Q4H PRN PRN Reason: Constipation Multi-Ingred Cream/Lotion/Oil/Oint (Artificial Tears Ophth Oint) 1 applic OU Q4HR PRN PRN Reason: Dry Eye(s) Ondansetron HCl (Zofran) 4 mg IV Q8H PRN PRN Reason: N/V unrelieved by Reglan Review of Systems ROS unobtainable: due to endotracheal tube, due to mental status Physical Examination - Vital Signs Vital Signs: Vital Signs Temp Pulse Resp BP Pulse Ox 98.4 F 112 H 24 107/67 100 08/05/16 05:22 08/05/16 05:22 08/05/16 05:22 08/05/16 05:22 08/05/16 05:22 - Constitutional General appearance: acutely ill - EENT EENT: Present: ATNC, PERRL, mucous membranes dry - Respiratory Respiratory: Present: chest non-tender, decreased breath sounds - Cardiovascular Cardiovascular: Present: regular rate Extremities: Present: no peripheral edema bilatateraly, no clubbing, cyanosis, no inflammation, no ischemia or petechiae - Gastrointestinal Gastrointestinal: Present: normoactive bowel sounds, non-distended - Integumentary Integumentary: Present: normal - Neurologic Cranial nerve examination: PERRL, face symmetric, intact gag reflex, Intact Vestibulo-ocular r Speech examination: other (no speech) Detailed motor examination: other (myoclonic jerks stimulus induced large amplitude affecting UE > LE) Motor examination - right side: 2/5: triceps, wrist flexion, wrist extension, public health technologist, hip flexors (triple flexion LE), knee extensors, dorsiflexion, toe extension (EHL), plantarflexion, 5/5: biceps (slight ext posturing in UE) Motor examination - left side: 2/5: biceps (slight ext posturing in UE), triceps , wrist flexion, wrist extension, public health technologist, hip flexors (triple flexion LE), knee extensors, dorsiflexion, toe extension (EHL), plantarflexion Detailed sensory examination: other (ext posturing in UE and triple flexion LE) Reflex and gait examination: Babinski's sign Reflexes: 0: ankle, bicep, knee, tricep - Musculoskeletal Musculoskeletal: Present: no fluid collection, no pain Results - Laboratory Findings CBC and BMP: 08/05/16 Unknown 08/05/16 Unknown Abnormal Lab Findings: Abnormal Labs 08/05/16 08/05/16 08/05/16 Unknown Unknown Unknown WBC 14.0 H Seg Neutrophils # Man 8.0 H PT 15.3 H INR 1.22 H Carbon Dioxide 16 L Creatinine 1.4 H Glucose 231 H AST 176 H ALT 112 H Assessment and Plan 40 YO F 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 details/compliance s/p Trach reportedly on 3 early AM had suspected choking episode followed by unresponsiveness found to have PEA arrest s/p OOH ACLS. . 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 Neuro exam: intact pupil reflex, no clear corneal reflex, UE ext posturing and LE triple flexion but while on Versed gtt. CTH neg on admit. Prognosis cannot be assessed while on Versed gtt and pt is not 24 hrs from event. Recs: 1. Neuro checks Q4hrs 2. EEG to assess for seizures. If neg can taper off sedation 3. Cont LEV 1g BID and TPX 100mg BID for now. 4. Will need to be reassessed for formal prognosis determination as early as or 08/08 if sedatives can be tapered off.
[2016-08-05 12:55] LABS: ISTAT Base Excess -7; ISTAT HCO3 18.5; ISTAT PCO2 33.6 (35-45); ISTAT PO2 249 (80-105); ISTAT SO2 100; ISTAT TCO2 20
[2016-08-05] MEDS: DIPRIVAN 10 MG/ML 1,000 MG/100 ML BOTTLE IV SCH ×2 (12:57→17:55)
[2016-08-05] MEDS: PEPCID IV SCH ×2 (12:58→22:14)
[2016-08-05] MEDS: LOVENOX SUB-Q SCH (12:58)
[2016-08-05] MEDS: ROCEPHIN/NS 1 GM/50 ML 1 GM/50 ML BAG IV SCH (13:35)
--- NOTE | 2016-08-05 14:55 | XRay Report ---
Flatplate of abdomen: History: Feeding tube location. Findings: Tip of NG tube is noted in the fundus of the stomach. Impression: Tip of NG tube in fundus of stomach.
[2016-08-05] MEDS ORDERED: SIMPLE SYRUP FEEDTUBE PRN ×2 (15:12)
[2016-08-05] MEDS ORDERED: PANCREAZE DR 10,500 UNIT FEEDTUBE PRN (15:12)
[2016-08-05] MEDS ORDERED: SODIUM BICARBONATE FEEDTUBE PRN (15:12)
[2016-08-05] MEDS ORDERED: NORMODYNE IV ONE ×2 (17:35→18:00)
[2016-08-05] MEDS ORDERED: APRESOLINE IV ONE (17:38)
[2016-08-05] MEDS ORDERED: APRESOLINE IV PRN (17:39)
[2016-08-05] MEDS ORDERED: NORMODYNE IV PRN ×3 (17:44→18:22)
[2016-08-05] MEDS: TOPAMAX PO SCH ×2 (17:45→22:14)
[2016-08-05] MEDS: CARDENE DRIP 40 MG/200 ML 40 MG/200 ML BAG IV SCH ×2 (18:40→22:10)
--- NOTE | 2016-08-05 22:07 | Consultation ---
CONSULTING PHYSICIAN: Bautista Villela MD REASON FOR CONSULTATION: Acute respiratory failure, status post cardiac arrest. CHIEF COMPLAINT AND HISTORY OF PRESENT ILLNESS: The patient is a 40-year-old -[place] female with past medical history, really unclear except that she does indeed have a tracheostomy tube in place at home. She does have also reported history of seizure disorder, on antiepileptic drugs. She was found down by family at home with trouble breathing, apparently they said the family did see her struggling to breathe then she collapsed. Emergency medical services came, found unresponsive in the bathroom. She was cold to touch, agonal respirations, she was pulseless. She received CPR and was found to have in pulseless electrical activity at a rate of about 50. Chest compression was started. Intraosseous line was placed for IV fluids and in the ER, she did not seem to have significant respiratory function or brain functions. It looks like she was intubated, I am assuming, in the Emergency Room. We are asked to evaluate. When I stopped by to see her, she was lying on the ventilator. She was having continuous myoclonic type jerks and nonresponsive. I do not have any history of emesis or overt aspiration. With regards to tobacco use/abuse history, family does mention she has about a [id number] smoking history at most, but quit smoking a few years back. That really is as much of the history of presentation as I have. PAST MEDICAL HISTORY: Therefore, history of seizures. PAST SURGICAL HISTORY: Has had a tracheostomy placed. MEDICATIONS: She was on at the time I stopped by to see her, according to the medication administration record included the following: Tylenol 650 mg p.o. q.4h. p.r.n. All p.o. meds via the feeding tube. Dulcolax 10 mg per rectum daily p.r.n., Rocephin 1 gram IV daily, Lovenox 40 mg subcutaneous daily, Pepcid 20 mg IV b.i.d., Keppra 1 gram IV q.12h., Zofran 4 mg IV q.8h. p.r.n. Propofol drip has just been ordered started, it is going at 20 mcg per kg per minute and Topamax has just been ordered 100 mg p.o. q.12h. ALLERGIES: No known drug allergies. DIET: Obese lady. Family denies significant weight loss or gain, preceding few weeks to months. FAMILY AND SOCIAL HISTORY: Lived in the community. Mother and sister in the room now. She has a [id number] remote tobacco smoking history. No current alcohol or illicit drug use or abuse or tobacco history. REVIEW OF SYSTEMS: Unobtainable secondary to the patient's medical and mental condition since she has been here, no gross hematochezia or melena, no gross hematuria, no hematemesis, no bloody tracheal secretions. PHYSICAL EXAMINATION: VITAL SIGNS: At presentation in the Emergency Room revealed, vital signs shows she was afebrile, temperature 98.4 Fahrenheit rectally with a pulse of 112, respiratory rate of 24, blood pressure 107/67, oxygen sats were 100%, inspired oxygen concentration was not recorded. HEAD, EYES, EARS, NOSE, AND THROAT: Pupils equal, round, about 2-3 mm, difficult to tell if they are reactive to light at this point with now on the propofol drip. Extraocular muscle movements could not be adequately assessed. No nystagmus was seen. Grossly, no palpable lymph nodes in the supraclavicular or submandibular lymph node chains. She is contacted to the ventilator via a tracheostomy tube that probably was changed out in the ER with some minor or mild bleeding around the stoma. LUNGS: Auscultation of both lung vinson unremarkable. Lungs are clear bilaterally. HEART: Heart sounds 1 and 2 are heard, regular rate and rhythm at the time of my evaluation. ABDOMEN: Soft, full, bowel sounds are positive, nontender. EXTREMITIES: Without overt digital clubbing, cyanosis, or pedal edema. She has intraosseous needle in the left rich region. NEUROLOGIC: She is having multiple myoclonic jerks, I would say one every 15-20 seconds or thereabouts. LABORATORY DATA: From my review are as follows: White cell count 14,000, hemoglobin 12.0, hematocrit 39.2, and platelets 232. Arterial blood gas at presentation showed a pH of 7.09, pCO2 of 60, pO2 of 139 on 50% FIO2. Serum sodium 138, potassium 4.4, chloride 102, bicarbonate was 16, BUN 16, creatinine 1.4, glucose 231. Lactic acid level was 4.6. Liver function tests: AST is up at 176, ALT at 112. Urinalysis showed negative for nitrites and leukocyte esterase, 15 white cells, no bacteria reported. Urine drug screen was negative. Radiographic studies being reviewed. CT of the cervical spine was done and it was read as negative for an acute fracture. CT of the head was done and it was read as negative, no acute intracranial process. Chest x-ray was also done, I am waiting on the film to come out, is reported as no acute cardiopulmonary findings with the trachea in appropriate position. Tracheal aspirate was sent. ASSESSMENT AND PLAN: We have a middle-aged lady who the family is now telling me got the tracheostomy after essentially been found down in about March while being in police custody they tell me. She was treated at [facility]. We will try and get those records. From a respiratory standpoint, we will keep her on full mechanical ventilatory support. Repeat ABG will be done. Adjustments will be made as necessary. She is currently on a sed rate of I believe tidal volumes and PEEP of 5. Aspiration precautions and other ventilator bundles will be instituted. She is going to be placed on p.r.n. bronchodilator therapy and we will follow her clinically. Certainly, mental status would have precluded safe extubation without a tracheostomy, but hopefully we can liberate her from the ventilator. From a cardiovascular standpoint, blood pressure is holding at this point, I will follow her clinically. No acute indication for an echocardiogram in my opinion and cardiac enzymes were unremarkable at presentation. From a GI and nutritional standpoint, enteral nutrition will be the feeding modality of choice, a feeding tube has been placed and once position has been confirmed, we will begin enteral nutrition as well as medications, oral medications. She is appropriately on GI prophylaxis. From a renal standpoint, no major electrolyte abnormalities; however, will be ordered a magnesium and phosphorus level. Creatinine is at 1.4. Hopefully, with gentle hydration that should improve. We will see how that goes. Again, from a GI standpoint, I note the AST and ALT elevated and I would not be surprised if this increases further and she may have suffered some shock liver while she was down. From an infectious disease standpoint, no signs and symptoms of overwhelming sepsis. She has been started empirically on antibiotics. I will get a CRP level. I have a mind to discontinue antibiotics as I do not see what we are treating and otherwise they will be deescalated based on results of microbiologic data in over the next 48-72 hours. I will also draw a couple of blood cultures to make sure we are not missing anything. Now from a [employer] standpoint, she is being seen by the neurologist, the myoclonic jerks in my opinion are poor prognostic sign. We will up-titrate the propofol, see if it controls the myoclonic jerks. She has been started on Keppra and she is about to begin Topamax. We will follow neurology make recommendations. From a general and hospital healthcare maintenance standpoint, she is going to be on GI and DVT prophylaxis. Flu and pneumonia vaccination will be per protocol. Thank you very much for the consult, Dr. Mathew, Dr. Villela. We will follow along and make further recommendations as the picture progresses/becomes clearer. At this point, I have spent about 30-35 minutes of critical care time without overlap and excluding any procedural time that may be necessary. She is critically ill on life-sustaining interventions including mechanical ventilatory support at higher risk for further deterioration including . I will now be going into talk to the family. JOB# [id number] HORACIO/CHARLENE
--- NOTE | 2016-08-05 22:22 | Consultation ---
This EEG shows a background rhythm, which consists of periodic burst suppression pattern with sharp wave activity and then slowing, it is not isoelectric, is more suggestive of periodic lateralizing epileptiform discharges. IMPRESSION: EEG showing continuous, periodic lateralizing focal epileptiform discharges. This is not isoelectric, it is suggestive of a seizure focus. JOB# [id number] JANAE/NTS
[2016-08-06] MEDS: DIPRIVAN 10 MG/ML 1,000 MG/100 ML BOTTLE IV SCH ×3 (00:58→12:40)
[2016-08-06 04:54] LABS: Basophils % (Auto) 0.4 % (0.0-1.8); Eosinophils % (Auto) 0.2 % (0.0-4.3); Hematocrit 35.1 % (30.3-42.9); Hemoglobin 11.1 gm/dl (10.1-14.3); Mean Corpuscular HGB Conc 32 % (30-34); Mean Corpuscular Hemoglobin 28 pg (28-32); Platelet Count 184 K/mm3 (140-440); Red Blood Count 3.95 M/mm3 (3.65-5.03); Red Cell Distribution Width 13.9 % (13.2-15.2); White Blood Count 9.4 K/mm3 (4.5-11.0)
[2016-08-06] MEDS: VERSED/NS 100MG/100ML 100 MG/100 ML BAG IV SCH (05:00)
[2016-08-06 05:08] LABS: Alanine Aminotransferase 94 units/L (7-56); Albumin 3.2 g/dL (3.9-5); Albumin/Globulin Ratio 1.1 %; Alkaline Phosphatase 62 units/L (35-129); Anion Gap 17 mmol/L; Bilirubin,Total 0.6 mg/dL (0.1-1.2); Blood Urea Nitrogen 15 mg/dL (7-17); Calcium 8.1 mg/dL (8.4-10.2); Carbon Dioxide 21 mmol/L (22-30); Glucose 96 mg/dL (65-100); Magnesium 1.5 mg/dL (1.7-2.3); Phosphorous 2.7 mg/dL (2.5-4.5); Potassium 3.6 mmol/L (3.6-5.0); Sodium 137 mmol/L (137-145); Total Protein 6.1 g/dL (6.3-8.2)
[2016-08-06 05:22] LABS: Mean Corpuscular Volume 92 fl (79-97)
[2016-08-06 05:54] LABS: ISTAT Base Excess -3; ISTAT HCO3 21.7; ISTAT PCO2 32.6 (35-45); ISTAT PH 7.431 (7.35-7.45); ISTAT PO2 126 (80-105); ISTAT SO2 99; ISTAT TCO2 23
[2016-08-06] MEDS ORDERED: MAGNESIUM SULFATE 4GM/100ML 4 GM/100 ML BAG IV ONE (09:00)
[2016-08-06] MEDS: TOPAMAX PO SCH ×2 (09:35→22:38)
[2016-08-06] MEDS: PEPCID PO SCH ×2 (09:35→22:38)
--- NOTE | 2016-08-06 11:03 | Progress Note ---
Assessment and Plan - Patient Problems (1) Acute hypoxemic respiratory failure Current Visit: Yes Status: Acute Plan to address problem: - wean oxygen to keep sats > 92% - continue bronchodilators and pulmonary toilet - routine trach care per RT - continue aspiration precautions / VAP bundles (2) Acute encephalopathy Current Visit: Yes Status: Acute Plan to address problem: - initial CT head negative - neurology evaluation pending - continue AED's - continue IV sedation as needed (3) Obesity Current Visit: Yes Status: Acute Qualifiers: Obesity type: O Obesity severity: O Plan to address problem: - weight loss post discharge if recovers (4) Discharge planning issues Current Visit: Yes Status: Acute Plan to address problem: - remains critically ill on MVS and at risk for further deterioration including ....33' CCT Subjective Date of service: 08/06/16 Principal diagnosis: Acute Hypoxemic Respiratory Failure; Chronic Trach dependence Interval history: Seen and examined at bedside; 24 hour events reviewed; nursing and respiratory care staff consulted; no adverse overnight events reported to me; resting in bed ; no myoclonic jerks at time of my examination; no emesis or overt aspiration; AMS is persistent Objective Vital Signs - 12hr 08/05/16 08/05/16 08/05/16 22:40 22:50 23:00 Temperature Pulse Rate 110 H 108 H 109 H Respiratory 27 H 31 H 32 H Rate Blood Pressure 185/127 185/127 151/132 O2 Sat by Pulse 100 100 100 Oximetry 08/05/16 08/05/16 08/05/16 23:10 23:20 23:30 Temperature Pulse Rate 109 H 110 H 109 H Respiratory 28 H 26 H 27 H Rate Blood Pressure 151/132 151/132 152/128 O2 Sat by Pulse 100 100 100 Oximetry 08/05/16 08/05/16 08/05/16 23:40 23:50 23:53 Temperature 101.3 F H Pulse Rate 110 H 109 H Respiratory 21 22 Rate Blood Pressure 152/128 79/40 O2 Sat by Pulse 100 100 Oximetry 08/05/16 08/06/16 08/06/16 23:54 00:00 00:10 Temperature Pulse Rate 108 H 109 H 109 H Respiratory 23 28 H 24 Rate Blood Pressure 71/38 89/50 76/45 O2 Sat by Pulse 100 100 100 Oximetry 08/06/16 08/06/16 08/06/16 00:20 00:30 00:34 Temperature Pulse Rate 109 H 110 H 109 H Respiratory 28 H 31 H Rate Blood Pressure 85/51 87/56 87/56 O2 Sat by Pulse 100 100 100 Oximetry 08/06/16 08/06/16 08/06/16 00:40 00:50 01:00 Temperature Pulse Rate 109 H 109 H 109 H Respiratory 31 H 27 H 24 Rate Blood Pressure 97/48 92/52 104/51 O2 Sat by Pulse 100 100 100 Oximetry 08/06/16 08/06/16 08/06/16 01:10 01:20 01:30 Temperature Pulse Rate 109 H 109 H 109 H Respiratory 21 30 H 29 H Rate Blood Pressure 95/46 85/55 95/51 O2 Sat by Pulse 100 100 100 Oximetry 08/06/16 08/06/16 08/06/16 01:40 01:50 02:00 Temperature Pulse Rate 108 H 109 H 108 H Respiratory 25 H 33 H 29 H Rate Blood Pressure 99/61 97/58 92/53 O2 Sat by Pulse 100 100 100 Oximetry 08/06/16 08/06/16 08/06/16 02:10 02:20 02:30 Temperature Pulse Rate 108 H 108 H 107 H Respiratory 34 H 28 H 29 H Rate Blood Pressure 98/62 98/61 101/65 O2 Sat by Pulse 100 100 100 Oximetry 08/06/16 08/06/16 08/06/16 02:40 02:50 03:00 Temperature Pulse Rate 106 H 106 H 106 H Respiratory 29 H 28 H 28 H Rate Blood Pressure 98/62 104/67 107/68 O2 Sat by Pulse 100 100 100 Oximetry 08/06/16 08/06/16 08/06/16 03:10 03:20 03:30 Temperature Pulse Rate 105 H 106 H 106 H Respiratory 24 29 H 27 H Rate Blood Pressure 105/63 107/50 107/72 O2 Sat by Pulse 100 100 100 Oximetry 08/06/16 08/06/16 08/06/16 03:40 03:50 04:00 Temperature 99.0 F Pulse Rate 105 H 105 H 104 H Respiratory 29 H 29 H 26 H Rate Blood Pressure 101/62 111/71 119/67 O2 Sat by Pulse 100 100 99 Oximetry 08/06/16 08/06/16 08/06/16 04:10 04:20 04:30 Temperature Pulse Rate 107 H 106 H 106 H Respiratory 19 21 24 Rate Blood Pressure 107/70 118/75 115/70 O2 Sat by Pulse 100 100 100 Oximetry 08/06/16 08/06/16 08/06/16 04:40 04:50 05:00 Temperature Pulse Rate 105 H 105 H 104 H Respiratory 26 H 24 25 H Rate Blood Pressure 112/77 107/68 110/70 O2 Sat by Pulse 100 100 100 Oximetry 08/06/16 08/06/16 08/06/16 05:10 05:20 05:30 Temperature Pulse Rate 103 H 103 H 101 H Respiratory 20 22 23 Rate Blood Pressure 106/66 108/69 114/67 O2 Sat by Pulse 100 100 100 Oximetry 08/06/16 08/06/16 08/06/16 05:40 05:46 05:50 Temperature Pulse Rate 102 H 102 H 102 H Respiratory 20 20 Rate Blood Pressure 111/70 111/70 109/68 O2 Sat by Pulse 100 100 100 Oximetry 08/06/16 08/06/16 08/06/16 06:00 06:10 06:20 Temperature Pulse Rate 102 H 102 H 101 H Respiratory 21 23 20 Rate Blood Pressure 111/71 107/69 118/73 O2 Sat by Pulse 100 100 100 Oximetry 08/06/16 08/06/16 08/06/16 06:30 06:40 06:50 Temperature Pulse Rate 101 H 101 H 101 H Respiratory 22 21 24 Rate Blood Pressure 111/69 109/68 113/67 O2 Sat by Pulse 100 100 100 Oximetry 08/06/16 08/06/16 08/06/16 07:00 07:10 07:15 Temperature Pulse Rate 101 H 100 H Respiratory 20 20 21 Rate Blood Pressure 108/70 112/72 O2 Sat by Pulse 100 100 100 Oximetry 08/06/16 08/06/16 08/06/16 07:20 07:30 07:40 Temperature Pulse Rate 101 H 100 H 100 H Respiratory 21 20 20 Rate Blood Pressure 115/73 116/73 116/74 O2 Sat by Pulse 100 100 100 Oximetry 08/06/16 08/06/16 08/06/16 07:50 08:00 08:10 Temperature Pulse Rate 100 H 100 H 100 H Respiratory 20 21 22 Rate Blood Pressure 116/73 114/74 116/73 O2 Sat by Pulse 100 100 100 Oximetry 08/06/16 08/06/16 08/06/16 08:20 08:21 08:30 Temperature Pulse Rate 102 H 101 H 100 H Respiratory 20 21 Rate Blood Pressure 111/70 114/71 110/70 O2 Sat by Pulse 100 100 100 Oximetry 08/06/16 08/06/16 08/06/16 08:40 08:50 09:00 Temperature Pulse Rate 99 H 99 H 98 H Respiratory 20 20 20 Rate Blood Pressure 113/72 108/70 110/71 O2 Sat by Pulse 100 100 100 Oximetry 08/06/16 08/06/16 08/06/16 09:10 09:20 09:30 Temperature Pulse Rate 98 H 97 H 97 H Respiratory 20 20 20 Rate Blood Pressure 112/71 111/71 113/75 O2 Sat by Pulse 100 100 100 Oximetry 08/06/16 09:40 Temperature Pulse Rate 100 H Respiratory 22 Rate Blood Pressure 117/75 O2 Sat by Pulse 100 Oximetry Constitutional: no acute distress, other (encephalopathic) Eyes: non-icteric ENT: oropharynx moist Neck: supple, no lymphadenopathy Effort: mildly labored Ascultation: Bilateral: clear Cardiovascular: regular rate and rhythm Gastrointestinal: normoactive bowel sounds, soft, non-tender, non-distended Integumentary: normal Extremities: no cyanosis, no edema, pulses normal, no ischemia or petechiae Neurologic: unable to assess Psychiatric: other (sedated) CBC and BMP: 08/06/16 04:20 08/07/16 05:15 ABG, PT/INR, D-dimer: ABG POC ABG pH 7.431 (7.35-7.45) 08/06/16 05:48 POC ABG pCO2 32.6 (35-45) L 08/06/16 05:48 POC ABG pO2 126 (80-105) H 08/06/16 05:48 POC ABG HCO3 21.7 08/06/16 05:48 POC ABG Total CO2 23 08/06/16 05:48 POC ABG O2 Sat 99 08/06/16 05:48 PT/INR, D-dimer PT 15.3 Sec. (12.2-14.9) H 08/05/16 Unknown INR 1.22 (0.87-1.13) H 08/05/16 Unknown Abnormal lab findings: Abnormal Labs 08/05/16 08/05/16 08/05/16 12:50 Unknown Unknown WBC 14.0 H Lymph % (Auto) Waldo % (Auto) Lymph # Waldo # Seg Neutrophils % Seg Neutrophils # Man 8.0 H PT INR POC ABG pCO2 33.6 L POC ABG pO2 249 H Carbon Dioxide 16 L Creatinine 1.4 H Glucose 231 H Calcium Magnesium AST 176 H ALT 112 H Total Protein Albumin 08/05/16 08/06/16 08/06/16 Unknown 04:20 04:20 WBC Lymph % (Auto) 11.3 L Waldo % (Auto) 11.9 H Lymph # 1.1 L Waldo # 1.1 H Seg Neutrophils % 76.2 H Seg Neutrophils # Man PT 15.3 H INR 1.22 H POC ABG pCO2 POC ABG pO2 Carbon Dioxide 21 L Creatinine Glucose Calcium 8.1 L Magnesium 1.5 L AST 117 H ALT 94 H Total Protein 6.1 L Albumin 3.2 L 08/06/16 05:48 WBC Lymph % (Auto) Waldo % (Auto) Lymph # Waldo # Seg Neutrophils % Seg Neutrophils # Man PT INR POC ABG pCO2 32.6 L POC ABG pO2 126 H Carbon Dioxide Creatinine Glucose Calcium Magnesium AST ALT Total Protein Albumin Chest x-ray: image reviewed
[2016-08-06] MEDS: LOVENOX SUB-Q SCH (11:05)
[2016-08-06] MEDS: KEPPRA 1,000 MG in D5W 100 ML IV SCH ×2 (11:05→22:37)
[2016-08-06] MEDS: ROCEPHIN/NS 1 GM/50 ML 1 GM/50 ML BAG IV SCH (11:08)
--- NOTE | 2016-08-06 12:07 | XRay Report ---
Single view chest: Compared to 08/05/16. History: Left arm PICC line placement. Findings: Borderline cardiomegaly. Stable support system. Tip of left PICC line in MID superior vena cava. No consolidation or pleural effusion. Impression: Tip of left PICC line in mid superior vena cava.
--- NOTE | 2016-08-06 12:30 | Progress Note ---
Assessment and Plan 1. S/P cardiacrespiratory arrest, CPR. Probably hypo/anoxic brain injury, supportive. 2. History of seizure. Continue Keppra and topamax. She has an EEG yesterday, per sound technician supervisor, Dr. Song read it, no sustained seizure. If clinically indicated, will consider repeat EEG study. CT he, 2016, without contrast, negative. 3. Infection. Antibiotics. 4. Will evaluate after tapering off sedatives. 5. Dr. Steve Rasmussen will follow up with you. 6. Plan discussed with her nurse. Subjective Date of service: 08/06/16 Principal diagnosis: Acute Hypoxemic Respiratory Failure; Chronic Trach dependence Interval history: No clinical seizure. Still on two sedatives, Midazolam and Propofol. Objective - Vital Sign Vital Signs - 12hr 08/06/16 08/06/16 08/06/16 00:30 00:34 00:40 Temperature Pulse Rate 110 H 109 H 109 H Respiratory 31 H 31 H Rate Blood Pressure 87/56 87/56 97/48 O2 Sat by Pulse 100 100 100 Oximetry 08/06/16 08/06/16 08/06/16 00:50 01:00 01:10 Temperature Pulse Rate 109 H 109 H 109 H Respiratory 27 H 24 21 Rate Blood Pressure 92/52 104/51 95/46 O2 Sat by Pulse 100 100 100 Oximetry 08/06/16 08/06/16 08/06/16 01:20 01:30 01:40 Temperature Pulse Rate 109 H 109 H 108 H Respiratory 30 H 29 H 25 H Rate Blood Pressure 85/55 95/51 99/61 O2 Sat by Pulse 100 100 100 Oximetry 08/06/16 08/06/16 08/06/16 01:50 02:00 02:10 Temperature Pulse Rate 109 H 108 H 108 H Respiratory 33 H 29 H 34 H Rate Blood Pressure 97/58 92/53 98/62 O2 Sat by Pulse 100 100 100 Oximetry 08/06/16 08/06/16 08/06/16 02:20 02:30 02:40 Temperature Pulse Rate 108 H 107 H 106 H Respiratory 28 H 29 H 29 H Rate Blood Pressure 98/61 101/65 98/62 O2 Sat by Pulse 100 100 100 Oximetry 08/06/16 08/06/16 08/06/16 02:50 03:00 03:10 Temperature Pulse Rate 106 H 106 H 105 H Respiratory 28 H 28 H 24 Rate Blood Pressure 104/67 107/68 105/63 O2 Sat by Pulse 100 100 100 Oximetry 08/06/16 08/06/16 08/06/16 03:20 03:30 03:40 Temperature Pulse Rate 106 H 106 H 105 H Respiratory 29 H 27 H 29 H Rate Blood Pressure 107/50 107/72 101/62 O2 Sat by Pulse 100 100 100 Oximetry 08/06/16 08/06/16 08/06/16 03:50 04:00 04:10 Temperature 99.0 F Pulse Rate 105 H 104 H 107 H Respiratory 29 H 26 H 19 Rate Blood Pressure 111/71 119/67 107/70 O2 Sat by Pulse 100 99 100 Oximetry 08/06/16 08/06/16 08/06/16 04:20 04:30 04:40 Temperature Pulse Rate 106 H 106 H 105 H Respiratory 21 24 26 H Rate Blood Pressure 118/75 115/70 112/77 O2 Sat by Pulse 100 100 100 Oximetry 08/06/16 08/06/16 08/06/16 04:50 05:00 05:10 Temperature Pulse Rate 105 H 104 H 103 H Respiratory 24 25 H 20 Rate Blood Pressure 107/68 110/70 106/66 O2 Sat by Pulse 100 100 100 Oximetry 08/06/16 08/06/16 08/06/16 05:20 05:30 05:40 Temperature Pulse Rate 103 H 101 H 102 H Respiratory 22 23 20 Rate Blood Pressure 108/69 114/67 111/70 O2 Sat by Pulse 100 100 100 Oximetry 08/06/16 08/06/16 08/06/16 05:46 05:50 06:00 Temperature Pulse Rate 102 H 102 H 102 H Respiratory 20 21 Rate Blood Pressure 111/70 109/68 111/71 O2 Sat by Pulse 100 100 100 Oximetry 08/06/16 08/06/16 08/06/16 06:10 06:20 06:30 Temperature Pulse Rate 102 H 101 H 101 H Respiratory 23 20 22 Rate Blood Pressure 107/69 118/73 111/69 O2 Sat by Pulse 100 100 100 Oximetry 08/06/16 08/06/16 08/06/16 06:40 06:50 07:00 Temperature Pulse Rate 101 H 101 H 101 H Respiratory 21 24 20 Rate Blood Pressure 109/68 113/67 108/70 O2 Sat by Pulse 100 100 100 Oximetry 08/06/16 08/06/16 08/06/16 07:10 07:15 07:20 Temperature Pulse Rate 100 H 101 H Respiratory 20 21 21 Rate Blood Pressure 112/72 115/73 O2 Sat by Pulse 100 100 100 Oximetry 08/06/16 08/06/16 08/06/16 07:30 07:40 07:50 Temperature Pulse Rate 100 H 100 H 100 H Respiratory 20 20 20 Rate Blood Pressure 116/73 116/74 116/73 O2 Sat by Pulse 100 100 100 Oximetry 08/06/16 08/06/16 08/06/16 08:00 08:10 08:20 Temperature 98.3 F Pulse Rate 100 H 100 H 102 H Respiratory 21 22 20 Rate Blood Pressure 114/74 116/73 111/70 O2 Sat by Pulse 100 100 100 Oximetry 08/06/16 08/06/16 08/06/16 08:21 08:30 08:40 Temperature Pulse Rate 101 H 100 H 99 H Respiratory 21 20 Rate Blood Pressure 114/71 110/70 113/72 O2 Sat by Pulse 100 100 100 Oximetry 08/06/16 08/06/16 08/06/16 08:50 09:00 09:10 Temperature Pulse Rate 99 H 98 H 98 H Respiratory 20 20 20 Rate Blood Pressure 108/70 110/71 112/71 O2 Sat by Pulse 100 100 100 Oximetry 08/06/16 08/06/16 08/06/16 09:20 09:30 09:40 Temperature Pulse Rate 97 H 97 H 100 H Respiratory 20 20 22 Rate Blood Pressure 111/71 113/75 117/75 O2 Sat by Pulse 100 100 100 Oximetry 08/06/16 08/06/16 08/06/16 09:50 10:00 10:10 Temperature Pulse Rate 100 H 100 H 99 H Respiratory 20 20 20 Rate Blood Pressure 118/77 117/76 122/79 O2 Sat by Pulse 100 100 100 Oximetry 08/06/16 08/06/16 08/06/16 10:20 10:30 10:40 Temperature Pulse Rate 98 H 98 H 98 H Respiratory 20 20 22 Rate Blood Pressure 114/73 109/70 111/70 O2 Sat by Pulse 100 100 100 Oximetry 08/06/16 08/06/16 08/06/16 10:50 11:00 11:10 Temperature Pulse Rate 97 H 98 H 97 H Respiratory 21 20 20 Rate Blood Pressure 116/71 120/78 124/78 O2 Sat by Pulse 100 100 100 Oximetry 08/06/16 08/06/16 08/06/16 11:20 11:30 11:40 Temperature Pulse Rate 98 H 103 H 98 H Respiratory 20 21 20 Rate Blood Pressure 125/80 127/87 122/78 O2 Sat by Pulse 100 100 100 Oximetry - Respiratory Respiratory: other (chach on.) - Cardiovascular Cardiovascular: regular rate, no murmurs - Gastrointestinal Gastrointestinal: soft, non-distended - Neurologic Cranial nerve examination: face symmetric, intact gag reflex, other (Pupils 6 mm , round, equal, reactive. Corneal and doll existed. No any movements to deep pain stimulation.) Motor examination - right side: 2/5: biceps, triceps, wrist flexion, wrist extension, test automation architect, hip flexors, knee extensors, dorsiflexion, toe extension (EHL) , plantarflexion Motor examination - left side: 2/5: biceps, triceps, wrist flexion, wrist extension, test automation architect, hip flexors, knee extensors, dorsiflexion, toe extension (EHL) , plantarflexion Posture: other (No posture,) Reflexes: 1+: ankle, bicep, knee, tricep - Laboratory Findings CBC and BMP: 08/06/16 04:20 08/06/16 04:20 Abnormal Lab Findings: Abnormal Labs 08/05/16 08/05/16 08/05/16 12:50 Unknown Unknown WBC 14.0 H Lymph % (Auto) Meigs % (Auto) Lymph # [place] # Seg Neutrophils % Seg Neutrophils # Man 8.0 H PT INR POC ABG pCO2 33.6 L POC ABG pO2 249 H Carbon Dioxide 16 L Creatinine 1.4 H Glucose 231 H Calcium Magnesium AST 176 H ALT 112 H Total Protein Albumin 08/05/16 08/06/16 08/06/16 Unknown 04:20 04:20 WBC Lymph % (Auto) 11.3 L Meigs % (Auto) 11.9 H Lymph # 1.1 L Meigs # 1.1 H Seg Neutrophils % 76.2 H Seg Neutrophils # Man PT 15.3 H INR 1.22 H POC ABG pCO2 POC ABG pO2 Carbon Dioxide 21 L Creatinine Glucose Calcium 8.1 L Magnesium 1.5 L AST 117 H ALT 94 H Total Protein 6.1 L Albumin 3.2 L 08/06/16 05:48 WBC Lymph % (Auto) [place]igs % (Auto) Lymph # Meigs # Seg Neutrophils % Seg Neutrophils # Man PT INR POC ABG pCO2 32.6 L POC ABG pO2 126 H Carbon Dioxide Creatinine Glucose Calcium Magnesium AST ALT Total Protein Albumin
[2016-08-06] MEDS: REGLAN IV SCH ×2 (14:40→22:38)
--- NOTE | 2016-08-06 16:10 | Progress Note ---
Assessment and Plan Assessment and plan: Suspected anoxic brain injury * CT head unremarkable, C-spine imaging does not reveal any trauma. * Will obtain EEG and MRI brain, neurology consulted, * also need to speak to the family about the goals of care after the MRI. Status epilepticus * having myoclonic jerks on admission, concern would anoxic related seizures at that time. * cont her on Keppra, patient being put on propofol drip, will obtain EEG * neurology following Mixed acidosis, respiratory acidosis plus lactic acidosis * This was most likely due to the period of anoxia and respiratory failure, * continue ventilator, monitor BMP Acute hypercapnic respiratory failure * Continue ventilator * CC following UTI meets sepsis criteria * follow urine cultures and cont empiric antibiotics Acute kidney injury due to vasomotor nephropathy * Treatment with IV fluids * moniotr renal function patient is critically ill with very poor prognosis, History Interval history: Patient seen and examined. Medical records and medication list reviewed. No acute event overnight noted by the RN. Patient is intubated and does not respond to any stimuli. Discussed with sister by phone and updated in details. Hospitalist Physical - Constitutional Vitals: Temp Pulse Resp BP Pulse Ox 98.3 F 100 H 20 131/85 100 08/06/16 12:00 08/06/16 15:31 08/06/16 15:20 08/06/16 15:31 08/06/16 15:31 General appearance: Present: other (intubated and sedated) - EENT Eyes: Present: miosis. Absent: scleral icterus ENT: dentition normal, no thrush, no ulcerations - Neck Neck: Present: other (trach on place and connected with vent) - Respiratory Respiratory: bilateral: CTA - Cardiovascular Rhythm: other (tachycardic) Heart Sounds: Present: S1 & S2 - Extremities Extremities: no ischemia, No edema Peripheral Pulses: within normal limits - Abdominal General gastrointestinal: soft, non-tender, non-distended, hypoactive bowel sounds - Integumentary Integumentary: Present: dry, pale - Neurologic Neurologic: no moves all extremities, no gait normal Results - Labs CBC & Chem 7: 08/06/16 04:20 08/07/16 05:15 Labs: Laboratory Last Values WBC 9.4 K/mm3 (4.5-11.0) 08/06/16 04:20 RBC 3.95 M/mm3 (3.65-5.03) 08/06/16 04:20 Hgb 11.1 gm/dl (10.1-14.3) 08/06/16 04:20 Hct 35.1 % (30.3-42.9) 08/06/16 04:20 MCV 92 fl (79-97) 08/06/16 04:20 MCH 28 pg (28-32) 08/06/16 04:20 MCHC 32 % (30-34) 08/06/16 04:20 RDW 13.9 % (13.2-15.2) 08/06/16 04:20 Plt Count 184 K/mm3 (140-440) 08/06/16 04:20 Lymph % (Auto) 11.3 % (13.4-35.0) L 08/06/16 04:20 [place] % (Auto) 11.9 % (0.0-7.3) H 08/06/16 04:20 Eos % (Auto) 0.2 % (0.0-4.3) 08/06/16 04:20 Baso % (Auto) 0.4 % (0.0-1.8) 08/06/16 04:20 Lymph # 1.1 K/mm3 (1.2-5.4) L 08/06/16 04:20 [place] # 1.1 K/mm3 (0.0-0.8) H 08/06/16 04:20 Eos # 0.0 K/mm3 (0.0-0.4) 08/06/16 04:20 Baso # 0.0 K/mm3 (0.0-0.1) 08/06/16 04:20 Add Manual Diff Complete 08/05/16 Unknown Total Counted 100 08/05/16 Unknown Seg Neutrophils % 76.2 % (40.0-70.0) H 08/06/16 04:20 Seg Neuts % (Manual) 57.0 % (40.0-70.0) 08/05/16 Unknown Band Neutrophils % 6.0 % 08/05/16 Unknown Lymphocytes % (Manual) 31.0 % (13.4-35.0) 08/05/16 Unknown Reactive Lymphs % (Man) 0 % 08/05/16 Unknown Monocytes % (Manual) 5.0 % (0.0-7.3) 08/05/16 Unknown Eosinophils % (Manual) 0 % (0.0-4.3) 08/05/16 Unknown Basophils % (Manual) 0 % (0.0-1.8) 08/05/16 Unknown Metamyelocytes % 1.0 % 08/05/16 Unknown Myelocytes % 0 % 08/05/16 Unknown Promyelocytes % 0 % 08/05/16 Unknown Blast Cells % 0 % 08/05/16 Unknown Nucleated RBC % Not Reportable 08/05/16 Unknown Seg Neutrophils # 7.1 K/mm3 (1.8-7.7) 08/06/16 04:20 Seg Neutrophils # Man 8.0 K/mm3 (1.8-7.7) H 08/05/16 Unknown Band Neutrophils # 0.8 K/mm3 08/05/16 Unknown Lymphocytes # (Manual) 4.3 K/mm3 (1.2-5.4) 08/05/16 Unknown Abs React Lymphs (Man) 0.0 K/mm3 08/05/16 Unknown Monocytes # (Manual) 0.7 K/mm3 (0.0-0.8) 08/05/16 Unknown Eosinophils # (Manual) 0.0 K/mm3 (0.0-0.4) 08/05/16 Unknown Basophils # (Manual) 0.0 K/mm3 (0.0-0.1) 08/05/16 Unknown Metamyelocytes # 0.1 K/mm3 08/05/16 Unknown Myelocytes # 0.0 K/mm3 08/05/16 Unknown Promyelocytes # 0.0 K/mm3 08/05/16 Unknown Blast Cells # 0.0 K/mm3 08/05/16 Unknown WBC Morphology Not Reportable 08/05/16 Unknown Hypersegmented Neuts Not Reportable 08/05/16 Unknown Hyposegmented Neuts Not Reportable 08/05/16 Unknown Hypogranular Neuts Not Reportable 08/05/16 Unknown Smudge Cells Not Reportable 08/05/16 Unknown Toxic Granulation Not Reportable 08/05/16 Unknown Toxic Vacuolation Not Reportable 08/05/16 Unknown Dohle Bodies Not Reportable 08/05/16 Unknown Pelger-Huet Anomaly Not Reportable 08/05/16 Unknown Parvin Rods Not Reportable 08/05/16 Unknown Platelet Estimate Appears normal 08/05/16 Unknown Clumped Platelets Not Reportable 08/05/16 Unknown Plt Clumps, EDTA Not Reportable 08/05/16 Unknown Large Platelets Not Reportable 08/05/16 Unknown Giant Platelets Not Reportable 08/05/16 Unknown Platelet Satelliting Not Reportable 08/05/16 Unknown Plt Morphology Comment Not Reportable 08/05/16 Unknown RBC Morphology Not Reportable 08/05/16 Unknown Dimorphic RBCs Not Reportable 08/05/16 Unknown Polychromasia Not Reportable 08/05/16 Unknown Hypochromasia Few 08/05/16 Unknown Poikilocytosis Not Reportable 08/05/16 Unknown Anisocytosis 1+ 08/05/16 Unknown Microcytosis Not Reportable 08/05/16 Unknown Macrocytosis Not Reportable 08/05/16 Unknown Spherocytes Not Reportable 08/05/16 Unknown Pappenheimer Bodies Not Reportable 08/05/16 Unknown Sickle Cells Not Reportable 08/05/16 Unknown Target Cells Not Reportable 08/05/16 Unknown Tear Drop Cells Not Reportable 08/05/16 Unknown Ovalocytes Not Reportable 08/05/16 Unknown Helmet Cells Not Reportable 08/05/16 Unknown Hdz-[place] Bodies Not Reportable 08/05/16 Unknown [place] Rings Not Reportable 08/05/16 Unknown [place] Cells Not Reportable 08/05/16 Unknown Bite Cells Not Reportable 08/05/16 Unknown Crenated Cell Not Reportable 08/05/16 Unknown Elliptocytes Not Reportable 08/05/16 Unknown Acanthocytes (Spur) Not Reportable 08/05/16 Unknown Rouleaux Not Reportable 08/05/16 Unknown Hemoglobin C Crystals Not Reportable 08/05/16 Unknown Schistocytes Not Reportable 08/05/16 Unknown Malaria parasites Not Reportable 08/05/16 Unknown Len Bodies Not Reportable 08/05/16 Unknown Hem Pathologist Commnt No 08/05/16 Unknown PT 15.3 Sec. (12.2-14.9) H 08/05/16 Unknown INR 1.22 (0.87-1.13) H 08/05/16 Unknown POC ABG pH 7.431 (7.35-7.45) 08/06/16 05:48 POC ABG pCO2 32.6 (35-45) L 08/06/16 05:48 POC ABG pO2 126 (80-105) H 08/06/16 05:48 POC ABG HCO3 21.7 08/06/16 05:48 POC ABG Total CO2 23 08/06/16 05:48 POC ABG O2 Sat 99 08/06/16 05:48 POC ABG Base Excess -3 08/06/16 05:48 FiO2 35 % 08/06/16 05:48 Sodium 137 mmol/L (137-145) 08/06/16 04:20 Potassium 3.6 mmol/L (3.6-5.0) 08/06/16 04:20 Chloride 103.0 mmol/L (98-107) 08/06/16 04:20 Carbon Dioxide 21 mmol/L (22-30) L 08/06/16 04:20 Anion Gap 17 mmol/L 08/06/16 04:20 BUN 15 mg/dL (7-17) 08/06/16 04:20 Creatinine 1.0 mg/dL (0.7-1.2) 08/06/16 04:20 Estimated GFR > 60 ml/min 08/06/16 04:20 BUN/Creatinine Ratio 15.00 % 08/06/16 04:20 Glucose 96 mg/dL (65-100) 08/06/16 04:20 Lactic Acid 1.3 mmol/L (0.7-2.0) 08/05/16 15:19 Calcium 8.1 mg/dL (8.4-10.2) L 08/06/16 04:20 Phosphorus 2.7 mg/dL (2.5-4.5) 08/06/16 04:20 Magnesium 1.5 mg/dL (1.7-2.3) L 08/06/16 04:20 Total Bilirubin 0.6 mg/dL (0.1-1.2) 08/06/16 04:20 AST 117 units/L (5-40) H 08/06/16 04:20 ALT 94 units/L (7-56) H 08/06/16 04:20 Alkaline Phosphatase 62 units/L (35-129) 08/06/16 04:20 Troponin T < 0.010 ng/mL (0.00-0.029) 08/05/16 Unknown C-Reactive Protein 0.40 mg/dL (0.00-1.30) 08/05/16 15:19 Total Protein 6.1 g/dL (6.3-8.2) L 08/06/16 04:20 Albumin 3.2 g/dL (3.9-5) L 08/06/16 04:20 Albumin/Globulin Ratio 1.1 % 08/06/16 04:20 Urine Color Yellow (Yellow) 08/05/16 07:00 Urine Turbidity Cloudy (Clear) 08/05/16 07:00 Urine pH 6.0 (5.0-7.0) 08/05/16 07:00 Ur Specific [place] 1.013 (1.003-1.030) 08/05/16 07:00 Urine Protein >500 mg/dL (Negative) 08/05/16 07:00 Urine Glucose (UA) 150 mg/dL (Negative) 08/05/16 07:00 Urine Ketones Neg mg/dL (Negative) 08/05/16 07:00 Urine Blood Sm (Negative) 08/05/16 07:00 Urine Nitrite Neg (Negative) 08/05/16 07:00 Urine Bilirubin Neg (Negative) 08/05/16 07:00 Urine Urobilinogen < 2.0 mg/dL (<2.0) 08/05/16 07:00 Ur Leukocyte Esterase Neg (Negative) 08/05/16 07:00 Urine WBC (Auto) 15.0 /HPF (0.0-6.0) H 08/05/16 07:00 Urine RBC (Auto) 11.0 /HPF (0.0-6.0) 08/05/16 07:00 U Epithel Cells (Auto) 4.0 /HPF (0-13.0) 08/05/16 07:00 Amorphous Crystals Few 08/05/16 07:00 Urine Mucus Few /HPF 08/05/16 07:00 Urine HCG, Qual Negative (Negative) 08/05/16 07:00 Urine Opiates Screen Presumptive negative 08/05/16 07:00 Urine Methadone Screen Presumptive negative 08/05/16 07:00 Ur Barbiturates Screen Presumptive negative 08/05/16 07:00 Ur Phencyclidine Scrn Presumptive negative 08/05/16 07:00 Ur Amphetamines Screen Presumptive negative 08/05/16 07:00 U Benzodiazepines Scrn Presumptive negative 08/05/16 07:00 Urine Cocaine Screen Presumptive negative 08/05/16 07:00 U Marijuana (THC) Screen Presumptive negative 08/05/16 07:00 Drugs of Abuse Note Disclamer 08/05/16 07:00 - Imaging and Cardiology CT Scan - head: report reviewed
[2016-08-07 05:42] LABS: ISTAT Base Excess -5; ISTAT HCO3 19.6; ISTAT PCO2 32.2 (35-45); ISTAT PH 7.393 (7.35-7.45); ISTAT PO2 76 (80-105); ISTAT SO2 95; ISTAT TCO2 21
[2016-08-07 06:26] LABS: Anion Gap 17 mmol/L; BUN/Creatinine Ratio 16.25; Blood Urea Nitrogen 13 mg/dL (7-17); Calcium 8.3 mg/dL (8.4-10.2); Carbon Dioxide 20 mmol/L (22-30); Chloride 104.7 mmol/L (98-107); Glucose 102 mg/dL (65-100); Potassium 3.9 mmol/L (3.6-5.0); Sodium 138 mmol/L (137-145)
[2016-08-07] MEDS ORDERED: FLUARIX QUAD 2016-2017(36 MOS+) IM ONE (12:00)
[2016-08-07] MEDS ORDERED: PNEUMOVAX 23 IM ONE (12:00)
[2016-08-07] MEDS: LOVENOX SUB-Q SCH (12:45)
[2016-08-07] MEDS: ROCEPHIN/NS 1 GM/50 ML 1 GM/50 ML BAG IV SCH (12:46)
[2016-08-07] MEDS: TOPAMAX PO SCH (12:46)
[2016-08-07] MEDS: PEPCID PO SCH (12:46)
[2016-08-07] MEDS: KEPPRA 1,000 MG in D5W 100 ML IV SCH (12:58)
--- NOTE | 2016-08-07 13:22 | Progress Note ---
Assessment and Plan Assessment and plan: B/l Acute CVA * CT head unremarkable, C-spine imaging does not reveal any trauma. * EEG did not show any seizure and MRI brain showed b/l CVA, * updated family about the MRI result, family meeting tomorrow around 11 am. * place on aspirin, statin Status epilepticus * having myoclonic jerks on admission, concern was anoxic brain related seizures at that time. * Discussed with teleneurology and recommended to increase the dose of keppra * Dr. Caceres to see the pt today, might need 24h EEG monitoring per teleneurology Acute Encephalopathy * multifactorial likely due to acute CVA, anoxic brain injury and seizure * cont to monitor clinically Mixed acidosis, respiratory acidosis plus lactic acidosis * This was most likely due to the period of anoxia and respiratory failure, * continue ventilator, monitor BMP Acute on chronic hypercapnic respiratory failure * Continue ventilator * CC following * pt was on chronic trach before admission UTI meets sepsis criteria * follow urine cultures and cont empiric antibiotics Acute kidney injury due to vasomotor nephropathy * Treatment with IV fluids * monitor renal function * resolved now patient is critically ill with very poor prognosis History Interval history: Patient seen and examined. Medical records and medication list reviewed. No acute event overnight noted by the RN. Patient is intubated and does not respond to any stimuli. She is off sedation, MRI revealed bilateral ischemic acute CVA involving occipital and temporal lobe Discussed with sister by phone and updated her in details. Hospitalist Physical - Physical exam Narrative exam: General appearance: Present: other (intubated and sedated) - EENT Eyes: Present: miosis. Absent: scleral icterus ENT: dentition normal, no thrush, no ulcerations - Neck Neck: Present: other (trach on place and connected with vent) - Respiratory Respiratory: bilateral: CTA - Cardiovascular Rhythm: other (tachycardic) Heart Sounds: Present: S1 & S2 - Extremities Extremities: no ischemia, No edema Peripheral Pulses: within normal limits - Abdominal General gastrointestinal: soft, non-tender, non-distended, hypoactive bowel sounds - Integumentary Integumentary: Present: dry, pale - Neurologic Neurologic: no moves all extremities, no gait normal - Constitutional Vitals: Temp Pulse Resp BP Pulse Ox 99.0 F 118 H 21 150/94 100 08/07/16 12:00 08/07/16 12:00 08/07/16 12:00 08/07/16 12:00 08/07/16 12:00 General appearance: Present: other (intubated and sedated) Results - Labs CBC & Chem 7: 08/06/16 04:20 08/07/16 05:15 Labs: Laboratory Last Values WBC 9.4 K/mm3 (4.5-11.0) 08/06/16 04:20 RBC 3.95 M/mm3 (3.65-5.03) 08/06/16 04:20 Hgb 11.1 gm/dl (10.1-14.3) 08/06/16 04:20 Hct 35.1 % (30.3-42.9) 08/06/16 04:20 MCV 92 fl (79-97) 08/06/16 04:20 MCH 28 pg (28-32) 08/06/16 04:20 MCHC 32 % (30-34) 08/06/16 04:20 RDW 13.9 % (13.2-15.2) 08/06/16 04:20 Plt Count 184 K/mm3 (140-440) 08/06/16 04:20 Lymph % (Auto) 11.3 % (13.4-35.0) L 08/06/16 04:20 [place] % (Auto) 11.9 % (0.0-7.3) H 08/06/16 04:20 Eos % (Auto) 0.2 % (0.0-4.3) 08/06/16 04:20 Baso % (Auto) 0.4 % (0.0-1.8) 08/06/16 04:20 Lymph # 1.1 K/mm3 (1.2-5.4) L 08/06/16 04:20 [place] # 1.1 K/mm3 (0.0-0.8) H 08/06/16 04:20 Eos # 0.0 K/mm3 (0.0-0.4) 08/06/16 04:20 Baso # 0.0 K/mm3 (0.0-0.1) 08/06/16 04:20 Add Manual Diff Complete 08/05/16 Unknown Total Counted 100 08/05/16 Unknown Seg Neutrophils % 76.2 % (40.0-70.0) H 08/06/16 04:20 Seg Neuts % (Manual) 57.0 % (40.0-70.0) 08/05/16 Unknown Band Neutrophils % 6.0 % 08/05/16 Unknown Lymphocytes % (Manual) 31.0 % (13.4-35.0) 08/05/16 Unknown Reactive Lymphs % (Man) 0 % 08/05/16 Unknown Monocytes % (Manual) 5.0 % (0.0-7.3) 08/05/16 Unknown Eosinophils % (Manual) 0 % (0.0-4.3) 08/05/16 Unknown Basophils % (Manual) 0 % (0.0-1.8) 08/05/16 Unknown Metamyelocytes % 1.0 % 08/05/16 Unknown Myelocytes % 0 % 08/05/16 Unknown Promyelocytes % 0 % 08/05/16 Unknown Blast Cells % 0 % 08/05/16 Unknown Nucleated RBC % Not Reportable 08/05/16 Unknown Seg Neutrophils # 7.1 K/mm3 (1.8-7.7) 08/06/16 04:20 Seg Neutrophils # Man 8.0 K/mm3 (1.8-7.7) H 08/05/16 Unknown Band Neutrophils # 0.8 K/mm3 08/05/16 Unknown Lymphocytes # (Manual) 4.3 K/mm3 (1.2-5.4) 08/05/16 Unknown Abs React Lymphs (Man) 0.0 K/mm3 08/05/16 Unknown Monocytes # (Manual) 0.7 K/mm3 (0.0-0.8) 08/05/16 Unknown Eosinophils # (Manual) 0.0 K/mm3 (0.0-0.4) 08/05/16 Unknown Basophils # (Manual) 0.0 K/mm3 (0.0-0.1) 08/05/16 Unknown Metamyelocytes # 0.1 K/mm3 08/05/16 Unknown Myelocytes # 0.0 K/mm3 08/05/16 Unknown Promyelocytes # 0.0 K/mm3 08/05/16 Unknown Blast Cells # 0.0 K/mm3 08/05/16 Unknown WBC Morphology Not Reportable 08/05/16 Unknown Hypersegmented Neuts Not Reportable 08/05/16 Unknown Hyposegmented Neuts Not Reportable 08/05/16 Unknown Hypogranular Neuts Not Reportable 08/05/16 Unknown Smudge Cells Not Reportable 08/05/16 Unknown Toxic Granulation Not Reportable 08/05/16 Unknown Toxic Vacuolation Not Reportable 08/05/16 Unknown Dohle Bodies Not Reportable 08/05/16 Unknown Pelger-Huet Anomaly Not Reportable 08/05/16 Unknown Parvin Rods Not Reportable 08/05/16 Unknown Platelet Estimate Appears normal 08/05/16 Unknown Clumped Platelets Not Reportable 08/05/16 Unknown Plt Clumps, EDTA Not Reportable 08/05/16 Unknown Large Platelets Not Reportable 08/05/16 Unknown Giant Platelets Not Reportable 08/05/16 Unknown Platelet Satelliting Not Reportable 08/05/16 Unknown Plt Morphology Comment Not Reportable 08/05/16 Unknown RBC Morphology Not Reportable 08/05/16 Unknown Dimorphic RBCs Not Reportable 08/05/16 Unknown Polychromasia Not Reportable 08/05/16 Unknown Hypochromasia Few 08/05/16 Unknown Poikilocytosis Not Reportable 08/05/16 Unknown Anisocytosis 1+ 08/05/16 Unknown Microcytosis Not Reportable 08/05/16 Unknown Macrocytosis Not Reportable 08/05/16 Unknown Spherocytes Not Reportable 08/05/16 Unknown Pappenheimer Bodies Not Reportable 08/05/16 Unknown Sickle Cells Not Reportable 08/05/16 Unknown Target Cells Not Reportable 08/05/16 Unknown Tear Drop Cells Not Reportable 08/05/16 Unknown Ovalocytes Not Reportable 08/05/16 Unknown Helmet Cells Not Reportable 08/05/16 Unknown Hdz-[place] Bodies Not Reportable 08/05/16 Unknown [place] Rings Not Reportable 08/05/16 Unknown [place] Cells Not Reportable 08/05/16 Unknown Bite Cells Not Reportable 08/05/16 Unknown Crenated Cell Not Reportable 08/05/16 Unknown Elliptocytes Not Reportable 08/05/16 Unknown Acanthocytes (Spur) Not Reportable 08/05/16 Unknown Rouleaux Not Reportable 08/05/16 Unknown Hemoglobin C Crystals Not Reportable 08/05/16 Unknown Schistocytes Not Reportable 08/05/16 Unknown Malaria parasites Not Reportable 08/05/16 Unknown Len Bodies Not Reportable 08/05/16 Unknown Hem Pathologist Commnt No 08/05/16 Unknown PT 15.3 Sec. (12.2-14.9) H 08/05/16 Unknown INR 1.22 (0.87-1.13) H 08/05/16 Unknown POC ABG pH 7.393 (7.35-7.45) 08/07/16 05:36 POC ABG pCO2 32.2 (35-45) L 08/07/16 05:36 POC ABG pO2 76 (80-105) L 08/07/16 05:36 POC ABG HCO3 19.6 08/07/16 05:36 POC ABG Total CO2 21 08/07/16 05:36 POC ABG O2 Sat 95 08/07/16 05:36 POC ABG Base Excess -5 08/07/16 05:36 FiO2 30 % 08/07/16 05:36 Sodium 138 mmol/L (137-145) 08/07/16 05:15 Potassium 3.9 mmol/L (3.6-5.0) 08/07/16 05:15 Chloride 104.7 mmol/L (98-107) 08/07/16 05:15 Carbon Dioxide 20 mmol/L (22-30) L 08/07/16 05:15 Anion Gap 17 mmol/L 08/07/16 05:15 BUN 13 mg/dL (7-17) 08/07/16 05:15 Creatinine 0.8 mg/dL (0.7-1.2) 08/07/16 05:15 Estimated GFR > 60 ml/min 08/07/16 05:15 BUN/Creatinine Ratio 16.25 % 08/07/16 05:15 Glucose 102 mg/dL (65-100) H 08/07/16 05:15 Lactic Acid 1.3 mmol/L (0.7-2.0) 08/05/16 15:19 Calcium 8.3 mg/dL (8.4-10.2) L 08/07/16 05:15 Phosphorus 2.7 mg/dL (2.5-4.5) 08/06/16 04:20 Magnesium 1.5 mg/dL (1.7-2.3) L 08/06/16 04:20 Total Bilirubin 0.6 mg/dL (0.1-1.2) 08/06/16 04:20 AST 117 units/L (5-40) H 08/06/16 04:20 ALT 94 units/L (7-56) H 08/06/16 04:20 Alkaline Phosphatase 62 units/L (35-129) 08/06/16 04:20 Troponin T < 0.010 ng/mL (0.00-0.029) 08/05/16 Unknown C-Reactive Protein 0.40 mg/dL (0.00-1.30) 08/05/16 15:19 Total Protein 6.1 g/dL (6.3-8.2) L 08/06/16 04:20 Albumin 3.2 g/dL (3.9-5) L 08/06/16 04:20 Albumin/Globulin Ratio 1.1 % 08/06/16 04:20 Urine Color Yellow (Yellow) 08/05/16 07:00 Urine Turbidity Cloudy (Clear) 08/05/16 07:00 Urine pH 6.0 (5.0-7.0) 08/05/16 07:00 Ur Specific [place] 1.013 (1.003-1.030) 08/05/16 07:00 Urine Protein >500 mg/dL (Negative) 08/05/16 07:00 Urine Glucose (UA) 150 mg/dL (Negative) 08/05/16 07:00 Urine Ketones Neg mg/dL (Negative) 08/05/16 07:00 Urine Blood Sm (Negative) 08/05/16 07:00 Urine Nitrite Neg (Negative) 08/05/16 07:00 Urine Bilirubin Neg (Negative) 08/05/16 07:00 Urine Urobilinogen < 2.0 mg/dL (<2.0) 08/05/16 07:00 Ur Leukocyte Esterase Neg (Negative) 08/05/16 07:00 Urine WBC (Auto) 15.0 /HPF (0.0-6.0) H 08/05/16 07:00 Urine RBC (Auto) 11.0 /HPF (0.0-6.0) 08/05/16 07:00 U Epithel Cells (Auto) 4.0 /HPF (0-13.0) 08/05/16 07:00 Amorphous Crystals Few 08/05/16 07:00 Urine Mucus Few /HPF 08/05/16 07:00 Urine HCG, Qual Negative (Negative) 08/05/16 07:00 Urine Opiates Screen Presumptive negative 08/05/16 07:00 Urine Methadone Screen Presumptive negative 08/05/16 07:00 Ur Barbiturates Screen Presumptive negative 08/05/16 07:00 Ur Phencyclidine Scrn Presumptive negative 08/05/16 07:00 Ur Amphetamines Screen Presumptive negative 08/05/16 07:00 U Benzodiazepines Scrn Presumptive negative 08/05/16 07:00 Urine Cocaine Screen Presumptive negative 08/05/16 07:00 U Marijuana (THC) Screen Presumptive negative 08/05/16 07:00 Drugs of Abuse Note Disclamer 08/05/16 07:00 - Imaging and Cardiology MRI - head: report reviewed
[2016-08-07] MEDS: VERSED/NS 100MG/100ML 100 MG/100 ML BAG IV SCH (13:45)
--- NOTE | 2016-08-07 13:45 | Progress Note ---
Assessment and Plan (1) Acute hypoxemic respiratory failure Current Visit: Yes Status: Acute Plan to address problem: - continue to wean oxygen to keep sats > 92% - continue bronchodilators and pulmonary toilet - routine trach care per RT - continue aspiration precautions / VAP bundles (2) Acute encephalopathy Current Visit: Yes Status: Acute Plan to address problem: - initial CT head negative - neurology evaluation pending - continue AED's - continue IV sedation as needed - remuron for paralysis during MRI - readdress after MRI (3) Obesity Current Visit: Yes Status: Acute Qualifiers: Obesity type: O Obesity severity: O Plan to address problem: - weight loss post discharge if recovers (4) Discharge planning issues Current Visit: Yes Status: Acute Plan to address problem: - remains critically ill on MVS and at risk for further deterioration including ....30' CCT Subjective Date of service: 08/07/16 Principal diagnosis: Acute Hypoxemic Respiratory Failure; Chronic Trach dependence Interval history: Seen and examined at bedside; 24 hour events reviewed; nursing and respiratory care staff consulted; no adverse overnight events reported to me; back to having jerky movements today; MRI recommended and will paralyze her as necessary to get testing done; remains on MVS Objective Vital Signs - 12hr 08/07/16 08/07/16 08/07/16 01:50 02:00 02:10 Temperature Pulse Rate 119 H 118 H 118 H Respiratory 24 24 24 Rate Blood Pressure 149/95 142/95 150/92 O2 Sat by Pulse 100 100 100 Oximetry 08/07/16 08/07/16 08/07/16 02:20 02:30 02:40 Temperature Pulse Rate 117 H 119 H 122 H Respiratory 20 20 28 H Rate Blood Pressure 152/93 138/96 149/95 O2 Sat by Pulse 100 100 100 Oximetry 08/07/16 08/07/16 08/07/16 02:50 03:00 03:10 Temperature Pulse Rate 118 H 116 H 112 H Respiratory 20 20 20 Rate Blood Pressure 149/97 142/95 150/97 O2 Sat by Pulse 100 100 100 Oximetry 08/07/16 08/07/16 08/07/16 03:20 03:30 03:40 Temperature Pulse Rate 112 H 109 H 109 H Respiratory 22 22 20 Rate Blood Pressure 142/90 148/91 139/94 O2 Sat by Pulse 100 100 100 Oximetry 03/04/1508/07/16 08/07/16 03:50 04:00 04:10 Temperature 98.8 F Pulse Rate 108 H 107 H 114 H Respiratory 22 20 20 Rate Blood Pressure 145/92 150/95 158/93 O2 Sat by Pulse 100 100 100 Oximetry 08/07/16 08/07/16 08/07/16 04:20 04:30 04:40 Temperature Pulse Rate 113 H 118 H 120 H Respiratory 20 23 22 Rate Blood Pressure 150/88 134/93 152/95 O2 Sat by Pulse 100 100 100 Oximetry 08/07/16 08/07/16 08/07/16 04:50 05:00 05:10 Temperature Pulse Rate 117 H 120 H 122 H Respiratory 23 22 23 Rate Blood Pressure 162/92 156/95 149/95 O2 Sat by Pulse 100 100 100 Oximetry 08/07/16 08/07/16 08/07/16 05:11 05:20 05:30 Temperature Pulse Rate 123 H 123 H 124 H Respiratory 25 H 24 Rate Blood Pressure 150/95 149/97 154/98 O2 Sat by Pulse 100 100 100 Oximetry 08/07/16 08/07/16 08/07/16 05:40 05:50 06:00 Temperature Pulse Rate 121 H 123 H 125 H Respiratory 23 26 H 22 Rate Blood Pressure 145/98 154/97 141/95 O2 Sat by Pulse 100 100 100 Oximetry 08/07/16 08/07/16 08/07/16 06:10 06:20 06:30 Temperature Pulse Rate 121 H 115 H 110 H Respiratory 23 23 22 Rate Blood Pressure 150/97 141/97 145/94 O2 Sat by Pulse 100 100 100 Oximetry 08/07/16 08/07/16 08/07/16 06:40 06:50 07:00 Temperature Pulse Rate 122 H 123 H 109 H Respiratory 25 H 25 H 22 Rate Blood Pressure 136/96 147/90 148/94 O2 Sat by Pulse 100 100 100 Oximetry 08/07/16 08/07/16 08/07/16 07:10 07:20 07:30 Temperature Pulse Rate 123 H 121 H 112 H Respiratory 24 23 22 Rate Blood Pressure 141/92 144/93 143/93 O2 Sat by Pulse 100 100 100 Oximetry 08/07/16 08/07/16 08/07/16 07:40 07:50 07:52 Temperature 99.0 F Pulse Rate 122 H 118 H Respiratory 24 22 Rate Blood Pressure 145/92 149/94 O2 Sat by Pulse 100 100 Oximetry 08/07/16 08/07/16 08/07/16 08:00 08:10 08:20 Temperature Pulse Rate 121 H 121 H 114 H Respiratory 23 25 H 20 Rate Blood Pressure 143/89 145/91 154/91 O2 Sat by Pulse 100 100 100 Oximetry 08/07/16 08/07/16 08/07/16 08:30 08:40 08:50 Temperature Pulse Rate 121 H 122 H 121 H Respiratory 24 20 21 Rate Blood Pressure 151/90 140/92 142/92 O2 Sat by Pulse 100 100 100 Oximetry 08/07/16 08/07/16 08/07/16 09:00 09:10 09:20 Temperature Pulse Rate 117 H 119 H 126 H Respiratory 22 24 25 H Rate Blood Pressure 142/91 152/91 153/102 O2 Sat by Pulse 100 100 100 Oximetry 08/07/16 08/07/16 08/07/16 09:30 09:40 09:50 Temperature Pulse Rate 119 H 119 H 121 H Respiratory 23 22 24 Rate Blood Pressure 140/95 153/94 150/91 O2 Sat by Pulse 100 100 100 Oximetry 08/07/16 08/07/16 08/07/16 10:00 10:10 10:20 Temperature Pulse Rate 119 H 113 H 122 H Respiratory 24 20 22 Rate Blood Pressure 147/90 155/89 145/94 O2 Sat by Pulse 100 100 100 Oximetry 08/07/16 08/07/16 08/07/16 10:30 10:40 10:45 Temperature Pulse Rate 121 H 118 H 123 H Respiratory 21 22 Rate Blood Pressure 150/96 142/91 146/93 O2 Sat by Pulse 100 100 100 Oximetry 08/07/16 08/07/16 08/07/16 10:50 11:00 11:10 Temperature Pulse Rate 120 H 122 H 126 H Respiratory 22 24 21 Rate Blood Pressure 137/96 151/93 151/100 O2 Sat by Pulse 100 100 100 Oximetry 08/07/16 08/07/16 08/07/16 11:20 11:30 11:40 Temperature Pulse Rate 129 H 122 H 119 H Respiratory 25 H 23 22 Rate Blood Pressure 160/100 141/96 150/96 O2 Sat by Pulse 100 100 100 Oximetry 08/07/16 08/07/16 08/07/16 11:50 11:54 12:00 Temperature 99.0 F Pulse Rate 119 H 118 H Respiratory 22 21 Rate Blood Pressure 150/92 150/94 O2 Sat by Pulse 100 99 100 Oximetry Constitutional: appears uncomfortable, other (multiple jerks) Eyes: non-icteric ENT: oropharynx moist Neck: supple, no lymphadenopathy Effort: mildly labored Ascultation: Bilateral: clear Cardiovascular: regular rate and rhythm Gastrointestinal: normoactive bowel sounds, soft, non-tender, non-distended Integumentary: normal Extremities: no cyanosis, no edema, pulses normal, no ischemia or petechiae Neurologic: unable to assess Psychiatric: other (sedated) CBC and BMP: 08/06/16 04:20 08/07/16 05:15 ABG, PT/INR, D-dimer: ABG POC ABG pH 7.393 (7.35-7.45) 08/07/16 05:36 POC ABG pCO2 32.2 (35-45) L 08/07/16 05:36 POC ABG pO2 76 (80-105) L 08/07/16 05:36 POC ABG HCO3 19.6 08/07/16 05:36 POC ABG Total CO2 21 08/07/16 05:36 POC ABG O2 Sat 95 08/07/16 05:36 PT/INR, D-dimer PT 15.3 Sec. (12.2-14.9) H 08/05/16 Unknown INR 1.22 (0.87-1.13) H 08/05/16 Unknown Abnormal lab findings: Abnormal Labs 08/05/16 08/05/16 08/05/16 12:50 Unknown Unknown WBC 14.0 H Lymph % (Auto) Phelps % (Auto) Lymph # Phelps # Seg Neutrophils % Seg Neutrophils # Man 8.0 H PT INR POC ABG pCO2 33.6 L POC ABG pO2 249 H Carbon Dioxide 16 L Creatinine 1.4 H Glucose 231 H Calcium Magnesium AST 176 H ALT 112 H Total Protein Albumin 08/05/16 08/06/16 08/06/16 Unknown 04:20 04:20 WBC Lymph % (Auto) 11.3 L Phelps % (Auto) 11.9 H Lymph # 1.1 L Phelps # 1.1 H Seg Neutrophils % 76.2 H Seg Neutrophils # Man PT 15.3 H INR 1.22 H POC ABG pCO2 POC ABG pO2 Carbon Dioxide 21 L Creatinine Glucose Calcium 8.1 L Magnesium 1.5 L AST 117 H ALT 94 H Total Protein 6.1 L Albumin 3.2 L 08/06/16 08/07/16 08/07/16 05:48 05:15 05:36 WBC Lymph % (Auto) Phelps % (Auto) Lymph # Phelps # Seg Neutrophils % Seg Neutrophils # Man PT INR POC ABG pCO2 32.6 L 32.2 L POC ABG pO2 126 H 76 L Carbon Dioxide 20 L Creatinine Glucose 102 H Calcium 8.3 L Magnesium AST ALT Total Protein Albumin
[2016-08-07] MEDS: DIPRIVAN 10 MG/ML 1,000 MG/100 ML BOTTLE IV SCH (14:50)
[2016-08-07] MEDS ORDERED: ZEMURON IV ONE ×3 (15:00→17:00)
--- NOTE | 2016-08-07 16:28 | Magnetic Resonance Report ---
FINAL REPORT PROCEDURE: MRI brain without contrast. TECHNIQUE: Magnetic resonance imaging of the brain was performed without contrast material. HISTORY: Suspected anoxic brain injury. COMPARISON: CT head 08/05/2016. FINDINGS: There is motion artifact on a few of the pulse sequences. The ventricles are normal in size. There are no mass lesions. There is no intracranial hemorrhage. There is restricted diffusion in both occipital lobes. There is also a small area of restricted diffusion in the midportion of the left temporal lobe. This is confirmed on the ADC map images. The findings are consistent with acute ischemic injury. The mastoid air cells and paranasal sinuses are grossly clear. IMPRESSION: Acute ischemia involving both occipital lobes and a small portion of the left temporal lobe.
[2016-08-07] MEDS: REGLAN IV SCH ×2 (17:20→21:47)
[2016-08-07] MEDS ORDERED: ASPIRIN PO SCH (18:00)
[2016-08-07] MEDS ORDERED: PROTONIX IV SCH (18:00)
--- NOTE | 2016-08-07 18:59 | XRay Report ---
FINAL REPORT PROCEDURE: Abdomen. TECHNIQUE: Supine AP view. HISTORY: Nasogastric tube placement. COMPARISON: No prior studies are available for comparison. FINDINGS: The bowel gas pattern is normal. A nasogastric tube enters the stomach. The proximal side hole is near the gastroesophageal junction. The soft tissues are unremarkable. The regional skeleton appears intact. IMPRESSION: Nasogastric tube positioning as described.
[2016-08-07] MEDS ORDERED: MAGNESIUM SULFATE IV STA (20:01)
--- NOTE | 2016-08-07 20:20 | Consultation ---
History of Present Illness - Reason for Consult Consult date: 08/07/16 anoxia - History of Present Illness I went over the MRI of the brain is this is pattern of very extreme anoxic brain damage there is very profound bad prognosis as the EEG showed PLEDS activity... since this is from profound anoxia / pulse less state prognosis is nil... anticonvulsants usually very ineffective went over the MRI personally as well dictated a lengthy not... usual meds do not suppress this burst suppression pattern activity no family here to speak with spoke with Dr. Kelly earlier Past History Past Medical History: seizures, other (sp tracheostomy) Social history: lives with family Family history: no significant family history Medications and Allergies Allergies Allergy/AdvReac Type Severity Reaction Status Date / Time No Known Allergies Allergy Verified 08/05/16 05:30 Home Medications Medication Instructions Recorded Confirmed Last Taken Type Topiramate [Topamax] 100 mg PO BID 08/05/16 08/05/16 Unknown History levETIRAcetam [Keppra TAB] mg PO BID 08/05/16 Unknown History Aspirin [Aspirin TAB] 325 mg PO QDAY tablet 08/07/16 Unknown Rx AtorvaSTATin [Lipitor] 40 mg PO QHS tablet 08/07/16 Unknown Rx Enoxaparin [Lovenox] 40 mg SUB-Q QDAY syringe 08/07/16 Unknown Rx Lipase/Protease/Amylase [Pancreaze 1 each FEEDTUBE PRN PRN 30 Days 08/07/16 Unknown Rx 10,500 Unit] Ondansetron [Zofran INJ] 4 mg IV Q8H PRN 30 Days 08/07/16 Unknown Rx Pantoprazole [Protonix INJ] 40 mg IV QDAY vial 08/07/16 Unknown Rx Topiramate [Topamax] 100 mg PO Q12HR tablet 08/07/16 Unknown Rx Active Meds: Active Medications Acetaminophen (Tylenol) 650 mg PO Q4H PRN PRN Reason: Pain MILD(1-3)/Fever >100.5/CHRISTINE Al Hydrox/Mg Hydrox/Simethicone (Alum-Mag Hydrox-Simeth [phone]/5ml) 30 ml PO Q4H PRN PRN Reason: Indigestion Lipase/Protease/Amylase (Nyasia Rodriguez 10,500 Unit) 1 each FEEDTUBE PRN PRN PRN Reason: For Clogged Feeding Tube Aspirin (Aspirin) 325 mg PO QDAY LEDY Atorvastatin Calcium (Lipitor) 40 mg PO QHS LEDY Bisacodyl (Dulcolax) 10 mg AK QDAY PRN PRN Reason: constipation unrelieved by MOM Enoxaparin Sodium (Lovenox) 40 mg SUB-Q QDAY LEDY Last Admin: 08/07/16 12:45 Dose: 40 mg Hydralazine HCl (Apresoline) 10 mg IV Q4HR PRN PRN Reason: Blood Pressure Last Admin: 08/05/16 22:14 Dose: 10 mg Hydrophilic Ointment (Vaseline Lip Therapy) 1 applic TP Q2HR PRN PRN Reason: Dry Lips Midazolam HCl (Versed/Ns 100mg/100ml) 100 mg in 100 mls @ 2 mls/hr IV TITR LEDY ; 2 MG/HR PRN Reason: Protocol Last Titration: 08/07/16 16:25 Dose: 5 mg/hr, 5 mls/hr Ceftriaxone Sodium (Rocephin/Ns 1 Gm/50 Ml) 1 gm in 50 mls @ 100 mls/hr IV Q24HR LEDY PRN Reason: Protocol Last Admin: 08/07/16 12:46 Dose: 100 mls/hr Propofol (Diprivan 10 Mg/Ml) 1,000 mg in 100 mls @ 3.674 mls/hr IV TITR LEDY; 5 MCG/KG/MIN PRN Reason: Protocol Last Admin: 08/07/16 14:50 Dose: 15 mcg/kg/min, 11.022 mls/hr Levetiracetam 1,500 mg/ (Dextrose) 115 mls @ 400 mls/hr IV Q12HR LEDY Sodium Chloride (Nacl 0.9% 1000 Ml) 1,000 mls @ 100 mls/hr IV DIRECT LEDY Magnesium Sulfate 1 gm/ Sodium (Chloride) 52 mls @ 52 mls/hr IV ONCE ONE Stop: 08/07/16 21:59 Influenza Virus Vaccine Quadrival (Fluarix Quad 2505-1163(36 Mos+)) 60 mcg IM .ONCE ONE Stop: 08/08/16 12:01 Labetalol HCl (Normodyne) 10 mg IV Q8H PRN PRN Reason: HTN SYS>170 Last Admin: 08/05/16 18:36 Dose: 10 mg Magnesium Hydroxide (Milk Of Magnesia) 30 ml PO Q4H PRN PRN Reason: Constipation Metoclopramide HCl (Reglan) 5 mg IV Q8HR COUNTS INCLUDE 234 BEDS AT THE [facility] Stop: 08/09/16 13:59 Last Admin: 08/07/16 17:20 Dose: 5 mg Multi-Ingred Cream/Lotion/Oil/Oint (Artificial Tears Ophth Oint) 1 applic OU Q4HR PRN PRN Reason: Dry Eye(s) Ondansetron HCl (Zofran) 4 mg IV Q8H PRN PRN Reason: N/V unrelieved by Reglan Pantoprazole Sodium (Protonix) 40 mg IV QDAY COUNTS INCLUDE 234 BEDS AT THE [facility] Pneumococcal Polyvalent Vaccine (Pneumovax 23) 0.5 ml IM .ONCE ONE Stop: 08/08/16 12:01 Simple Syrup (Simple Syrup) 15 ml FEEDTUBE PRN PRN PRN Reason: Hypoglycemia Simple Syrup (Simple Syrup) 30 ml FEEDTUBE PRN PRN PRN Reason: Hypoglycemia Sodium Bicarbonate (Sodium Bicarbonate) 325 mg FEEDTUBE PRN PRN PRN Reason: For Clogged Feeding Tube Topiramate (Topamax) 100 mg PO Q12HR COUNTS INCLUDE 234 BEDS AT THE [facility] Last Admin: 08/07/16 12:46 Dose: 100 mg Exam - Constitutional Vitals: Temp Pulse Resp BP Pulse Ox 98.8 F 110 H 21 142/87 100 08/07/16 15:53 08/07/16 18:10 08/07/16 18:10 08/07/16 18:10 08/07/16 18:00 Results - Labs CBC & Chem 7: 08/06/16 04:20 08/07/16 05:15 Labs: Abnormal lab results 08/07/16 08/07/16 Range/Units 05:15 05:36 POC ABG pCO2 32.2 L (35-45) POC ABG pO2 76 L (80-105) Carbon Dioxide 20 L (22-30) mmol/L Glucose 102 H (65-100) mg/dL Calcium 8.3 L (8.4-10.2) mg/dL
[2016-08-07] MEDS ORDERED: NACL 0.9% 1000 ML 1,000 ML IV SCH (21:00)
[2016-08-07] MEDS ORDERED: MAGNESIUM SULFATE 1 GM in NACL 0.9% 50 ML IV ONE (21:00)
[2016-08-07] MEDS ORDERED: KEPPRA 1,500 MG in D5W 100 ML IV SCH (22:00)
[2016-08-07 22:21] VITALS: BP 148/88
--- NOTE | 2016-08-07 22:28 | Event Note ---
Date: 08/07/16 Co-ordinating with attending and neurology through the day MRI reveals multiple infarcts A&P: - will transfer to center for continuous EEG monitoring
--- NOTE | 2016-08-08 09:29 | Discharge Summary ---
Providers - Providers Date of Admission: 08/05/16 09:34 Date of discharge: 08/07/16 Attending physician: RUSSELL LIZARRAGA 08/05/16 09:46 Consult to Dietitian/Nutrition [CONS] Routine Physician Instructions: Reason For Exam: Reason for Consult: Write/Manage Tube Feeding 08/05/16 10:00 Consult to Physician [CONS] Routine Consulting Provider: FER CORDOVA Reason For Exam: seizures Place consult to:: DR. CORDOVA Notified:: YES Phone number called:: [phone] Was contact made?: Yes If yes, spoke with:: DR. CORDOVA Time called:: 11:20 08/07/16 17:09 Consult to Physician [CONS] Urgent Consulting Provider: EDIE BARNETT Reason For Exam: acute cva Place consult to:: answer notify @1935 spoke with marlo sylvester Notified:: Dr Lee Phone number called:: [phone] Was contact made?: Yes If yes, spoke with:: dr barnett Time called:: 20:00 Primary care physician: KETTLE SKIMMER Hospitalization Condition: Critical Hospital course: This is a 40-year-old woman with past medical history of seizure disorder on Keppra and Topamax, who is status post trach and lives at home who was found by family having trouble breathing, struggling to breathe, after which she collapsed. EMS was called upon arriving they found her unresponsive in the bathroom she was cold to touch and pale she had agonal respiration and she was pulseless on pupils were nonreactive. She received CPR which included chest compressions, ambu bag revealed resistance, after which she was aggressively suctioned. After chest compressions and bagging patient had a spontaneous return of circulation, IO was placed and she received IV fluids. Upon arriving in the ER her mental status did not improve, she continued to have myoclonic jerking, she was also lacking corneal reflex. Her CT scan in the ER was unremarkable and C-spine did not reveal any trauma. Patient was intubated in the ER and maintained on fentanyl and Versed for continuous myoclonic jerking. Pulmonology was consulted and neurology was following her. She had EEG which did not show any seizure-like activity. MRI of the brain obtained which showed bilateral occipital and left temporal acute CVA. Discussed the finding with a tendon neurology and they recommended to return the patient with continuous EEG. Discussed with all clinical findings and imaging results with the neurologist at [facility]. [facility] neurologist except that the patient and patient was transferred to [facility] for higher level of care. Family was updated about all clinical findings and imaging results. They were well aware and agreed with the management and plan. Discharge Diagnosis: B/l Acute CVA * CT head unremarkable, C-spine imaging does not reveal any trauma. * EEG did not show any seizure and MRI brain showed b/l CVA, * updated family about the MRI result, * placed on aspirin, statin, * cont on IV fluid to maintain permissive HTN Status epilepticus * having myoclonic jerks on admission, concern was anoxic brain related seizures at that time. * Discussed with teleneurology and recommended to increase the dose of keppra and need for 24h EEG monitoring per * Discussed with neurologist at [facility] for 24h EEG monitoring Acute Encephalopathy * multifactorial likely due to acute CVA, anoxic brain injury and seizure Mixed acidosis, respiratory acidosis plus lactic acidosis * This was most likely due to the period of anoxia and respiratory failure, Acute on chronic hypercapnic respiratory failure * Continue ventilator, present since admission * pt was on chronic trach before admission SIRS * Sepsis, criteria meet on admission * throught to have UTI on admission * urine cultures negative * draw blood cx, WBC trended down * so far no focal sign of infection Malignant HTN * was present on admission, required cardene drip for brief period of time * off cardine drip, BP much stable now Acute kidney injury due to vasomotor nephropathy * Treatment with IV fluids * monitor renal function * resolved now Disposition: DC/TX ANOTHER TYPE HEALTHCARE Time spent for discharge: about 2 hours Core Measure Documentation - Palliative Care Palliative Care/ Comfort Measures: Not Applicable - Core Measures Any of the following diagnoses?: stroke - Stroke Discharge Requirements Statin for LDL = or >70 mg/dl on DC: Yes Anticoag for atrial fib/atrial flutter: Not Applicable Antithrombotic for ischemic stroke: Yes Exam - Physical Exam Narrative exam: General appearance: Present: other (intubated and sedated) - EENT Eyes: Present: miosis. Absent: scleral icterus ENT: dentition normal, no thrush, no ulcerations - Neck Neck: Present: other (trach on place and connected with vent) - Respiratory Respiratory: bilateral: CTA - Cardiovascular Rhythm: other (tachycardic) Heart Sounds: Present: S1 & S2 - Extremities Extremities: no ischemia, No edema Peripheral Pulses: within normal limits - Abdominal General gastrointestinal: soft, non-tender, non-distended, hypoactive bowel sounds - Integumentary Integumentary: Present: dry, pale - Neurologic Neurologic: no moves all extremities, no gait normal - Constitutional Vitals: Temp Pulse Resp BP Pulse Ox 97.4 F L 106 H 21 148/88 99 08/07/16 20:00 08/07/16 22:20 08/07/16 22:20 08/07/16 22:20 08/07/16 22:20 Plan Follow up with: PRIMARY CAREMD [Primary Care Provider] - 3-5 Days
--- NOTE | 2016-08-08 10:48 | Consultation ---
HISTORY OF PRESENT ILLNESS: This is a 40-year-old female, who was initially presented to the Emergency Room on 08/05/2016. She presented to the Emergency Room after EMS found her to have an out of the hospital respiratory/pulmonary arrest. Her past medical history is not at all clear. She had a tracheostomy, apparently choked on something, indicates she was having trouble breathing. EMS reported that they lost her pulse and she was found at home and the period of time without the pulse was not at this point documented. She was admitted to the hospital on the and she was noted to have a cardiac arrest and on presentation to the Emergency Room, had a CT scan of the head initially that was normal and she was subsequently admitted, has remained deeply comatose since and I spoke with Dr. Kelly today. I had done an EEG on the patient and she had severe anoxic brain injury and had a PLEDs activity, which was very infrequent on the EEG and the PLEDs activity was about every 3 to 4 seconds indicating almost a marked flattening of the EEG in-between the burst suppression. Dr. Kelly asked me to see the patient and on seeing her, her examination shows she is on the ventilator. She does have this continuous seizure activity of her lower face, right eyelid and occasional jerking of both sides of the face. She has also spontaneous limb movement of both upper extremities and roving eye movements present, both the left and the right consistent with anoxic brain damage. She did not respond to a visual stimulation throughout. Her pupils are equal, round, and reactive to light and are 4 mm. She does respond to orals or verbal stimulation without any response. I do not find that she withdraws to pain consistently. She does have spontaneous movements of the limbs. IMPRESSION: From reviewing both her EEG and her MRI scan of the brain is that this is a profound anoxic brain damage. Seizures of this type, that are PLEDs activity are notoriously difficult to control even with seizure meds and I am not sure that anything short of very high doses of Diprivan are going to stop these nor are they indicative if they are stopped of her recovery because generally PLEDs activity occur only in this situation where there is profound anoxia. I am not sure of her past medical history whether she has had episodes like this in the past, but at this point, we are several days out from the arrest, which was on the and evaluating the patient her on the , I do not see much evidence to suggest recoverability at this point. I have discussed the case with the nursing staff and they did indicate that there is a consideration of transfer of the patient to [place] and that it would certainly seem logical in this situation as they can further assess the patient's underlying state and do EEG monitoring and see if the seizure activity can be suppressed with high dose anticonvulsant therapy. We certainly do not have the capability at this hospital to do EEG monitoring and adjusting high dose IV drug therapy with Vimpat and Keppra. JOB# [id number] JANAE/CHARLENE
[2016-08-08] MEDS ORDERED: PNEUMOVAX 23 IM ONE (12:00)
[2016-08-08] MEDS ORDERED: FLUARIX QUAD 2016-2017(36 MOS+) IM ONE (12:00)
== END 2016-08-07 23:17 | disposition short-term general hospital (02) | DRG 64 ==
LOC: ED 05:13 → CC1 09:34
PROVIDERS: ADMIT Internal Medicine; ATTEND Internal Medicine
PROC: 5A1945Z Respiratory Ventilation, 24-96 Consecutive Hours (ICD-10-PCS; principal; 2016-08-05)
PROC: 0BH17EZ Insertion of Endotracheal Airway into Trachea, Via Natural or Artificial Opening (ICD-10-PCS; 2016-08-05)
DX: I63.9 Cerebral infarction, unspecified (principal); J96.22 Acute and chronic respiratory failure with hypercapnia; N17.0 Acute kidney failure with tubular necrosis; G93.40 Encephalopathy, unspecified; E87.2 Acidosis; E87.4 Mixed disorder of acid-base balance; N39.0 Urinary tract infection, site not specified; Z68.41 Body mass index [BMI] 40.0-44.9, adult; R65.10 Systemic inflammatory response syndrome (SIRS) of non-infectious origin without acute organ dysfunction; Z93.0 Tracheostomy status; E11.9 Type 2 diabetes mellitus without complications; G40.901 Epilepsy, unspecified, not intractable, with status epilepticus; Z87.891 Personal history of nicotine dependence; Z23 Encounter for immunization; E66.9 Obesity, unspecified
CPT/HCPCS: 31500; 36415; 36600; 70450; 70551; 71010; 72125; 74000; 80048; 80053; 80307; 81001; 81025; 82140; 82803; 82962; 83735; 84100; 84484; 85007; 85025; 85610; 86140; 87040; 87070; 87086; 87205; 90686; 90732; 93005; 93010; 94002; 94003; 95819; J0360; J0696; J1650; J1953; J2060; J2250; J2704; J2765; J3475; J7030; J7070

== ENCOUNTER 2019-06-21 00:49 | Emergency (ER) | payer SELFPAY ==
[~2019-06-21 00:49] MED LIST changes: -ATIVAN ONE; +EPINEPHrine 1:10,000 1 MG/10 ML SYRINGE ONE; +SODIUM BICARB 8.4% 50 MEQ/50 ML SYRINGE IV ONE
--- NOTE | 2019-06-21 01:06 | Emergency Department Report ---
HPI - General Time Seen by Provider: 06/21/19 01:02 - HPI HPI: Room 2 The patient is a 43-year-old female presenting with chief complaint cardiac arrest. Per EMS the patient's last normal time was approximately 2 hours prior to arrival. Family went to check on the patient this evening and found her unresponsive. EMS was called at 00:10 and arrived on scene at 00:17. EMS states the patient was found to be in asystole and a Nathaly protocols initiated. Patient was administered 4 rounds of epinephrine is being bagged via BVM. The patient already has a trach in place so ACLS protocols were continued in the ED relation chief through bagging the tracheostomy. There was no return of spontaneous circulation ED Past Medical Hx - Past Medical History Hx Diabetes: Yes Additional medical history: Anoxic brain injury - Surgical History Additional Surgical History: TRACHEOSTOMY - Family History Family history: no significant - Social History Smoking Status: Unknown if ever smoked - Medications Home Medications: Home Medications Medication Instructions Recorded Confirmed Last Taken Type Topiramate [Topamax] 100 mg PO BID 08/05/16 08/05/16 Unknown History levETIRAcetam [Keppra TAB] mg PO BID 08/05/16 Unknown History Aspirin 325 mg PO QDAY tablet 08/07/16 Unknown Rx AtorvaSTATin [Lipitor] 40 mg PO QHS tablet 08/07/16 Unknown Rx Enoxaparin 40 mg SUB-Q QDAY syringe 08/07/16 Unknown Rx Lipase/Protease/Amylase [Pancreaze 1 each FEEDTUBE PRN PRN 30 Days 08/07/16 Unknown Rx 10,500 Unit] capsule Ondansetron [Zofran INJ] 4 mg IV Q8H PRN 30 Days vial 08/07/16 Unknown Rx Pantoprazole [Protonix INJ] 40 mg IV QDAY vial 08/07/16 Unknown Rx Sodium Chloride 0.9% 1000 ml [NaCl 100 ml IV DIRECT #2 bag 08/07/16 Unknown Rx 0.9 1000 ML] Topiramate [Topamax] 100 mg PO Q12HR tablet 08/07/16 Unknown Rx ED Review of Systems ROS: Stated complaint: CARDIAC ARREST Other details as noted in HPI Comment: Unobtainable due to pts medical conditions Physical Exam - Physical Exam Physical Exam: GENERAL: The patient is an adult female receiving chest compressions from EMS being bagged via trach HEENT: Normocephalic. Atraumatic. NECK: Trach in place CHEST/LUNGS: No spontaneous respirations. HEART/CARDIOVASCULAR: No heart sounds. Asystole on monitor ABDOMEN: Abdomen is soft, nontender. There is no abdominal distention. SKIN: There is no diaphoresis. NEURO: GCS 3 MUSCULOSKELETAL: There is no evidence of acute injury. ED Medical Decision Making - Differential Diagnosis cardiac arrest Critical care attestation.: If time is entered above; I have spent that time in minutes in the direct care of this critically ill patient, excluding procedure time. ED Disposition Clinical Impression: Cardiac arrest Disposition: DC-20 Is pt being admited?: No Does the pt Need Aspirin: No Condition: Poor Time of Disposition: 01:03 ( patient )
== END 2019-06-21 05:00 ==
LOC: ED 00:49
DX: I46.9 Cardiac arrest, cause unspecified (principal); E11.9 Type 2 diabetes mellitus without complications; Z79.899 Other long term (current) drug therapy
CPT/HCPCS: 92950; 99285; J0171